=== PATIENT | female | born 1950 | race Caucasian/White ===

== ENCOUNTER 2018-06-14 10:40 | Inpatient (IN) | payer OTHER ==
[2018-06-14] VITALS (9 sets, daily range): BP systolic 100–171; BP diastolic 54–82
[~2018-06-14] VITALS: Ht 165.1 cm; Wt 143.8 kg
[~2018-06-14 10:40] MED LIST: ASCO500T2 PO; ASPI-630 PO; ATOR40TA59 PO; CALC-98 PO; CARV25TA PO; CHOL500016 PO; CYAN25003 SL; DABI150C PO; Diltiazem Hcl PO; FENO54TA6 PO; FLUT16SP2 NS; FLUT1DIS3 IH; HYDR-2165 PO; IBUP-1007 PO; KETO5DRO OP; LIRA0.6P SQ; LOSA1TAB12 PO; LOSA25TA54 PO; METF10007 PO; Metoprolol Tartrate PO; OMEG1CAP2 PO; OMEP40CA2 PO; SIMV40TA PO; TRAZ300T2 PO; XOPENEX1.25 MG/3 IH
[2018-06-14] MEDS ORDERED: IV NORMAL SALINE 1000ML BAG 1,000 ML IV SCH (11:04)
[2018-06-14] MEDS ORDERED: dilTIAZem IV PUSH 25 MG/5 ML VIAL IVP ONE (11:15)
[2018-06-14] MEDS ORDERED: dilTIAZem INJ 125 MG in IV DEXTROSE 5% 100ML 100 ML IV ONE (11:15)
[2018-06-14] MEDS ORDERED: ASPIRIN CHEWABLE 81 MG TABLET. PO ONE (11:15)
[2018-06-14] MEDS ORDERED: MORPHINE SULFATE 4 MG/ML VIAL. IV ONE (11:30)
[2018-06-14] MEDS ORDERED: ONDANSETRON PF 4 MG/2 ML VIAL. IV ONE (11:30)
--- NOTE | 2018-06-14 11:33 | PHYS DOC ---
Past Medical History Past Medical History: A-Fib, Anemia, Asthma, CHF, Diabetes-Type II, Hypertension Past Surgical History: Tonsillectomy, Other Additional Past Surgical Histo: bilateral carpal tunnel Alcohol Use: None Drug Use: None Adult General Chief Complaint Chief Complaint: CHEST PAIN HPI HPI Patient is a 68-year-old female who presents with complaint of acute onset of left to midsternal chest pain that started about 9:30 PM today. Patient states that pain started at rest. She states the pain radiates into her left shoulder. She rates pain at an 8 out of 10 and also indicates that she has nausea. She denies having had any vomiting. Patient states that she also has some palpitations and feels like her heart is beating very quickly. She didn't check her blood pressure at home and found that it was quite elevated and found heart rate to be in the upper 130s. Patient does indicate that she has a cardiac history and states that she did have one prior episode of A. fib. Review of Systems Review of Systems Constitutional: Denies fever or chills [] Respiratory: Denies cough or shortness of breath [] Cardiovascular: No additional information not addressed in HPI [] GI: Denies abdominal pain. Complains of nausea without vomiting [] Integument: Denies rash or skin lesions [] Neurologic: Denies headache, focal weakness or sensory changes [] All other systems were reviewed and found to be within normal limits, except as documented in this note. Current Medications Current Medications Current Medications Medications (Trade) Dose Ordered Sig/Vic Start Time Stop Time Status Last Admin Dose Admin Aspirin (Children'S Aspirin) 324 mg 1X ONCE 06/14/18 11:15 06/14/18 11:25 DC 06/14/18 11:45 324 MG Diltiazem HCl (Cardizem Iv Push) 20 mg 1X ONCE 06/14/18 11:15 06/14/18 11:24 DC 06/14/18 12:02 20 MG Diltiazem HCl 125 mg/Dextrose 125 ml @ 10 mls/hr 1X ONCE 06/14/18 11:15 06/14/18 23:44 06/14/18 12:06 10 MLS/HR Morphine Sulfate (Morphine Sulfate) 4 mg 1X ONCE 06/14/18 11:30 06/14/18 11:33 DC Ondansetron HCl (Zofran) 4 mg 1X ONCE 06/14/18 11:30 06/14/18 11:31 DC Sodium Chloride 1,000 ml @ 1,000 mls/hr Q1H 06/14/18 11:04 06/14/18 12:03 DC 06/14/18 12:06 1,000 MLS/HR Allergies Allergies Allergies Coded Allergies Type Severity Reaction Last Updated Verified Penicillins Allergy Severe ANAPHYLAXIS 11/04/13 Yes Sulfa (Sulfonamide Antibiotics) Allergy Severe anaphylatic 11/04/13 No sulfamethoxazole Allergy Severe Anaphylaxis 11/04/13 No trimethoprim Allergy Severe Anaphylaxis 11/04/13 No cefaclor Allergy Intermediate hives 11/04/13 No celecoxib Allergy Intermediate 11/05/13 No iodine Allergy Intermediate hives 11/04/13 No levofloxacin Allergy Intermediate hives 11/04/13 No nitrofurantoin Allergy Intermediate hives 11/04/13 No tetanus immune globulin Allergy Intermediate 11/04/13 No tramadol Allergy Intermediate hives 11/04/13 No trandolapril Allergy Intermediate hives 11/04/13 No venom-honey bee Allergy Intermediate Hives 11/04/13 No verapamil Allergy Intermediate hives 11/04/13 No Physical Exam Physical Exam Constitutional: Well developed, well nourished, no acute distress, non-toxic appearance. [] HENT: Normocephalic, atraumatic, bilateral external ears normal, oropharynx moist, no oral exudates, nose normal. [] Eyes: PERRLA, EOMI, conjunctiva normal, no discharge. [] Neck: Normal range of motion, no tenderness, supple, no stridor. [] Cardiovascular: Markedly tachycardic rate with irregular rhythm[] Lungs & Thorax: Bilateral breath sounds clear to auscultation [] Abdomen: Bowel sounds normal, soft, no tenderness. [] Skin: Warm, dry, no erythema, no rash. [] Extremities: No tenderness, no cyanosis, no clubbing, ROM intact. [] Neurologic: Alert and oriented X 3, no focal deficits noted. [] Current Patient Data Vital Signs Vital Signs Date Time Temp Pulse Resp B/P (MAP) Pulse Ox O2 Delivery O2 Flow Rate FiO2 06/14/18 12:02 155 135/80 06/14/18 10:59 97.9 24 95 Nasal Cannula 3.0 97.9 Lab Values Laboratory Tests Test 06/14/18 11:13 06/14/18 11:50 White Blood Count 7.8 x10^3/uL (4.0-11.0) Red Blood Count 4.78 x10^6/uL (3.50-5.40) Hemoglobin 11.4 g/dL (12.0-15.5) L Hematocrit 36.8 % (36.0-47.0) Mean Corpuscular Volume 77 fL (79-100) L Mean Corpuscular Hemoglobin 24 pg (25-35) L Mean Corpuscular Hemoglobin Concent 31 g/dL (31-37) Red Cell Distribution Width 17.7 % (11.5-14.5) H Platelet Count 243 x10^3/uL (140-400) Neutrophils (%) (Auto) 73 % (31-73) Lymphocytes (%) (Auto) 16 % (24-48) L Monocytes (%) (Auto) 9 % (0-9) Eosinophils (%) (Auto) 1 % (0-3) Basophils (%) (Auto) 0 % (0-3) Neutrophils # (Auto) 5.7 x10^3uL (1.8-7.7) Lymphocytes # (Auto) 1.3 x10^3/uL (1.0-4.8) Monocytes # (Auto) 0.7 x10^3/uL (0.0-1.1) Eosinophils # (Auto) 0.1 x10^3/uL (0.0-0.7) Basophils # (Auto) 0.0 x10^3/uL (0.0-0.2) D-Dimer (Michelle) < 0.27 ug/mlFEU Sodium Level 152 mmol/L (136-145) H Potassium Level 4.0 mmol/L (3.5-5.1) Chloride Level 105 mmol/L (98-107) Carbon Dioxide Level 39 mmol/L (21-32) H Anion Gap 8 (6-14) Blood Urea Nitrogen 34 mg/dL (7-20) H Creatinine 1.5 mg/dL (0.6-1.0) H Estimated GFR (Cockcroft-Gault) 34.6 BUN/Creatinine Ratio 23 (6-20) H Glucose Level 277 mg/dL (70-99) H Calcium Level 9.1 mg/dL (8.5-10.1) Magnesium Level 1.4 mg/dL (1.8-2.4) L Total Bilirubin 0.4 mg/dL (0.2-1.0) Aspartate Amino Transferase (AST) 19 U/L (15-37) Alanine Aminotransferase (ALT) 25 U/L (14-59) Alkaline Phosphatase 36 U/L (46-116) L Troponin I Quantitative 0.032 ng/mL (0.000-0.055) JN-Mtb-X-Type Natriuretic Peptide 905 pg/mL (0-124) H Total Protein 6.3 g/dL (6.4-8.2) L Albumin 3.5 g/dL (3.4-5.0) Albumin/Globulin Ratio 1.3 (1.0-1.7) Lipase 135 U/L (73-393) Thyroid Stimulating Hormone (TSH) 0.749 uIU/mL (0.358-3.74) Laboratory Tests 06/14/18 11:13 Laboratory Tests 06/14/18 11:50 EKG EKG [] Interpretation Time: EKG demonstrates atrial fibrillation with rapid ventricular response and rate of 160 Radiology/Procedures Radiology/Procedures [] Impressions: PROCEDURE: PORTABLE CHEST 1V EXAM: CHEST 1 VIEW History: Chest pain COMPARISON: 05/09/2018 TECHNIQUE: Single portable radiograph of the chest FINDINGS: The cardiac silhouette is unremarkable. Mild bibasilar lung airspace opacities likely atelectasis or infiltrates. IMPRESSION: Mild bibasilar lung airspace opacities likely atelectasis or infiltrates. Follow-up to resolution Electronically signed by: Daniel Watson MD (06/14/2018 11:40 AM) [facility] Course & Med Decision Making Course & Med Decision Making Pertinent Labs and Imaging studies reviewed. (See chart for details) [] Dragon Disclaimer Dragon Disclaimer This electronic medical record was generated, in whole or in part, using a voice recognition dictation system. Departure Departure Impression: Primary Impression: Atrial fibrillation with RVR Additional Impression: Chest pain Disposition: 09 ADMITTED INPATIENT Admitting Physician: Malu Escobedo Condition: IMPROVED Referrals: MICAH HERNANDEZ MD (PCP) Problem Qualifiers Additional Impression: Chest pain Chest pain type: unspecified Qualified Codes: R07.9 - Chest pain, unspecified STANLEY CARLOS Jr. DO Jun 14, 2018 11:32
[2018-06-14 11:40] LABS: BASO % 0 % (0-3); EOS # 0.1 x10^3/uL (0.0-0.7); EOS % 1 % (0-3); HEMATOCRIT 36.8 % (36.0-47.0); HEMOGLOBIN 11.4 g/dL (12.0-15.5); LYMPH # 1.3 x10^3/uL (1.0-4.8); LYMPH % 16 % (24-48); MEAN CORPUSCULAR HEMOGLOBIN 24 pg (25-35); MEAN CORPUSCULAR HGB CONC 31 g/dL (31-37); MEAN CORPUSCULAR VOLUME 77 fL (79-100); MONO # 0.7 x10^3/uL (0.0-1.1); MONO % 9 % (0-9); NEUT # 5.7 x10^3uL (1.8-7.7); NEUT % 73 % (31-73); PLATELET COUNT 243 x10^3/uL (140-400); RED BLOOD COUNT 4.78 x10^6/uL (3.50-5.40); RED CELL DISTRIBUTION WIDTH 17.7 % (11.5-14.5); WHITE BLOOD COUNT 7.8 x10^3/uL (4.0-11.0)
--- NOTE | 2018-06-14 11:43 | RAD ---
EXAM: CHEST 1 VIEW History: Chest pain COMPARISON: 05/09/2018 TECHNIQUE: Single portable radiograph of the chest FINDINGS: The cardiac silhouette is unremarkable. Mild bibasilar lung airspace opacities likely atelectasis or infiltrates. IMPRESSION: Mild bibasilar lung airspace opacities likely atelectasis or infiltrates. Follow-up to resolution Electronically signed by: Daniel Watson MD (06/14/2018 11:40 AM) [place] [id number]
[2018-06-14 12:29] LABS: CALCIUM 9.1 mg/dL (8.5-10.1); CREATININE 1.5 mg/dL (0.6-1.0); GFR 34.6
[2018-06-14 12:33] LABS: ALBUMIN 3.5 g/dL (3.4-5.0); ALBUMIN/GLOBULIN RATIO 1.3 (1.0-1.7); MAGNESIUM 1.4 mg/dL (1.8-2.4); TOTAL BILIRUBIN 0.4 mg/dL (0.2-1.0); TOTAL PROTEIN 6.3 g/dL (6.4-8.2)
[2018-06-14] MEDS ORDERED: MORPHINE SULFATE 4 MG/ML VIAL. IV PRN (13:45)
[2018-06-14] MEDS ORDERED: ONDANSETRON PF 4 MG/2 ML VIAL. IV PRN (13:45)
[2018-06-14] MEDS ORDERED: METF10007 PO (16:33)
[2018-06-14] MEDS ORDERED: POTA10TA6 PO (16:33)
[2018-06-14] MEDS ORDERED: FERR325T14 PO (16:33)
[2018-06-14] MEDS ORDERED: FLUT1DIS3 IH (16:33)
[2018-06-14] MEDS ORDERED: FLUT9.9S NS (16:33)
[2018-06-14] MEDS ORDERED: LOSA-73 PO (16:33)
[2018-06-14] MEDS ORDERED: CHOL500016 PO (16:33)
[2018-06-14] MEDS ORDERED: XOPENEX0.63 MG/3 NEB (16:33)
[2018-06-14] MEDS ORDERED: HYDR-2761 PO (16:33)
[2018-06-14] MEDS ORDERED: DABI150C PO (16:33)
[2018-06-14] MEDS ORDERED: DESO60CR2 TP (16:33)
[2018-06-14] MEDS ORDERED: ASCO500C9 PO (16:33)
[2018-06-14] MEDS ORDERED: KETO5DRO EACHEYE (16:33)
[2018-06-14] MEDS ORDERED: CALC-98 PO (16:33)
[2018-06-14] MEDS ORDERED: FLUO15CR TP (16:33)
[2018-06-14] MEDS ORDERED: DILT180C64 PO (16:33)
[2018-06-14] MEDS ORDERED: METO25TA4 PO (16:33)
[2018-06-14] MEDS ORDERED: ASPI-630 PO (16:33)
[2018-06-14] MEDS ORDERED: TRIA80OI TP (16:33)
[2018-06-14] MEDS ORDERED: TRAZ300T2 PO (16:33)
[2018-06-14] MEDS ORDERED: LIPITOR80 MG PO (16:33)
[2018-06-14] MEDS ORDERED: CYAN10005 PO (16:33)
[2018-06-14] MEDS ORDERED: IBUP-1007 PO (16:33)
[2018-06-14] MEDS ORDERED: FENO145T30 PO (16:33)
[2018-06-14] MEDS ORDERED: FURO-69 PO (16:33)
[2018-06-14] MEDS ORDERED: OMEP20TA63 PO (16:33)
[2018-06-14] MEDS ORDERED: PRED20TA PO (16:35)
[2018-06-14] MEDS ORDERED: CEPH-264 PO (16:35)
[2018-06-14] MEDS ORDERED: C.DIFF MED SCREEN BY RX. MC ONE (17:00)
[2018-06-14] MEDS ORDERED: MAGNESIUM SULFATE 2GM 50 ML IV ONE (17:00)
--- NOTE | 2018-06-14 17:22 | PDOC1 ---
History and Physical Date of Admission Date of Admission DATE: 06/14/18 TIME: 17:18 Source Source: Chart review, Patient History of Present Illness History of Present Illness Ms. Tolbert, is a 68-year-old female admit from ER, acute chest pain started suddenly this AM pain left sided to mid sternal, was seveer in the ER, seems a little improved now. . Patient states that pain started at rest. She states the pain radiates into her left shoulder was rated as 8/10 in the ER prior echo 3 weeks ago, Dr. Murphy, prior cath, Past Medical History Cardiovascular: AFIB, HTN, Hyperlipidemia Pulmonary: Asthma, COPD CENTRAL NERVOUS SYSTEM: Carpal Tunnel Syndrome GI: GERD, Other Heme/Onc: No pertinent hx Hepatobiliary: No pertinent hx Psych: No pertinent hx Musculoskeletal: low back pain Rheumatologic: No pertinent hx Infectious disease: No pertinent hx Renal/: No pertinent hx Endocrine: Diabetes, Other Past Surgical History Past Surgical History: Tonsillectomy, Other Family History Family History: Cancer, Diabetes, Hypertension, Stroke Social History Smoke: No ALCOHOL: none Drugs: None Current Problem List Problem List Problems Medical Problems: (1) Atrial fibrillation with RVR Status: Acute (2) Chest pain Status: Acute Current Medications Current Medications Current Medications Diltiazem HCl (Cardizem Iv Push) 20 mg 1X ONCE IVP Last administered on at 12:02; Start 06/14/18 at 11:15; Stop 06/14/18 at 11:24; Status DC Aspirin (Children'S Aspirin) 324 mg 1X ONCE PO Last administered on 06/14/18at 11:45; Start 06/14/18 at 11:15; Stop 06/14/18 at 11:25; Status DC Diltiazem HCl 125 mg/Dextrose 125 ml @ 10 mls/hr 1X ONCE IV Last administered on 06/14/18at 12:06; Start 06/14/18 at 11:15; Stop 06/14/18 at 23:44 Sodium Chloride 1,000 ml @ 1,000 mls/hr Q1H IV Last administered on 06/14/18at 12:06; Start 06/14/18 at 11:04; Stop 06/14/18 at 12:03; Status DC Morphine Sulfate (Morphine Sulfate) 4 mg 1X ONCE IV ; Start 06/14/18 at 11:30; Stop 06/14/18 at 11:33; Status DC Ondansetron HCl (Zofran) 4 mg 1X ONCE IV ; Start 06/14/18 at 11:30; Stop at 11:31; Status DC Ondansetron HCl (Zofran) 4 mg PRN Q8HRS PRN IV NAUSEA/VOMITING; Start 06/14/18 at 13:45; Stop 06/15/18 at 13:44 Morphine Sulfate (Morphine Sulfate) 4 mg PRN Q2HR PRN IV PAIN; Start 06/14/18 at 13:45; Stop 06/15/18 at 13:44 Magnesium Sulfate 50 ml @ 25 mls/hr 1X ONCE IV ; Start 06/14/18 at 17:00; Stop 06/14/18 at 18:59 Pharmacy Consult (C.diff Med Screen By Rx) 1 each 1X ONCE [facility] ; Start 06/14/18 at 17:00; Stop 06/14/18 at 17:01; Status UNV Active Scripts Active Reported Keflex (Cephalexin) 500 Mg Capsule 1 Cap PO TID 3 Days Prednisone 20 Mg Tablet 1 Tab PO DAILY Triamcinolone Acetonide 80 Gm Oint...g. 1 Lupe TP PRN BID PRN Xopenex (Levalbuterol Hcl) 0.63 Mg/3 Ml Vial.neb 1 Vial NEB PRN DAILY PRN Hydrocodone-Apap 5-325 (Hydrocodone Bit/Acetaminophen) 1 Tab Tablet 1 Tab PO PRN BID PRN Fluocinonide 15 Gm Cream..g. 1 Lupe TP PRN DAILY PRN Desowen (Desonide) 60 Gm Cream..g. 1 Lupe TP PRN DAILY PRN Acular (Ketorolac Tromethamine) 5 Ml Drops 1 Drop EACHEYE DAILY Prilosec Otc (Omeprazole Magnesium) 20 Mg Tablet.dr 2 Tab PO DAILY Lipitor (Atorvastatin Calcium) 80 Mg Tablet 1 Tab PO DAILY Flonase Allergy Relief (Fluticasone Propionate) 9.9 Ml [place].susp 2 Sprays NS PRN DAILY PRN Trazodone Hcl 300 Mg Tablet 1 Tab PO QHS Vitamin B-12 (Cyanocobalamin (Vitamin B-12)) 1,000 Mcg Tablet 2.5 Tab PO DAILY Vitamin D3 (Cholecalciferol (Vitamin D3)) 5,000 Unit Tablet 1 Tab PO DAILY Vitamin C (Ascorbic Acid) 500 Mg Capsule 500 Mg PO DAILY05 Ferrous Sulfate 325 Mg Tablet 1 Tab PO DAILY Calcium + Vitamin D Tablet (Calcium Carbonate/Vitamin D3) 1 Each Tablet 1 Each PO DAILY Aspirin 81 Mg Tab.chew 1 Tab PO DAILY Pradaxa (Dabigatran Etexilate Mesylate) 150 Mg Capsule 1 Cap PO BID Metformin Hcl 1,000 Mg Tablet 1,000 Mg PO BIDWMEALS Metoprolol Tartrate 25 Mg Tablet 1 Tab PO BID Fenofibrate (Fenofibrate Nanocrystallized) 145 Mg Tablet 1 Tab PO DAILY Ibuprofen 600 Mg Tablet 1,800 Mg PO DAILY PRN Klor-Con 10 (Potassium Chloride) 10 Meq Tablet.er 10 Meq PO DAILY Lasix (Furosemide) 20 Mg Tablet 1 Tab PO DAILY Losartan Potassium 50 Mg Tablet 25 Mg PO DAILY Cartia Xt (Diltiazem Hcl) 180 Mg Cap.er.24h 360 Mg PO DAILY Advair 250-50 Diskus (Fluticasone/Salmeterol) 1 Each Disk.w.dev 1 Puff IH DAILY Allergies Allergies: Coded Allergies: Penicillins (Verified Allergy, Severe, ANAPHYLAXIS, 11/04/13) Sulfa (Sulfonamide Antibiotics) (Unverified Allergy, Severe, anaphylatic, 11/04/13) sulfamethoxazole (Unverified Allergy, Severe, Anaphylaxis, 11/04/13) trimethoprim (Unverified Allergy, Severe, Anaphylaxis, 11/04/13) cefaclor (Unverified Allergy, Intermediate, hives, 11/04/13) celecoxib (Unverified Allergy, Intermediate, 11/05/13) iodine (Unverified Allergy, Intermediate, hives, 11/04/13) levofloxacin (Unverified Allergy, Intermediate, hives, 11/04/13) nitrofurantoin (Unverified Allergy, Intermediate, hives, 11/04/13) tetanus immune globulin (Unverified Allergy, Intermediate, 11/04/13) tramadol (Unverified Allergy, Intermediate, hives, 11/04/13) trandolapril (Unverified Allergy, Intermediate, hives, 11/04/13) venom-honey bee (Unverified Allergy, Intermediate, Hives, 11/04/13) verapamil (Unverified Allergy, Intermediate, hives, 11/04/13) ROS General: YES: Fatigue; No: Night Sweats, Malaise, Appetite, Other PSYCHOLOGICAL ROS: No: Anxiety, Behavioral Disorder, Concentration difficultie , Decreased libido, Depression, Disorientation, Hallucinations, Hostility, Irritablity, Memory difficulties, Mood Swings, Obsessive thoughts, Physical abuse, Sexual abuse, Sleep disturbances, Suicidal ideation, Other Eyes: No Blurry vision, No Decreased vision, No Double vision, No Dry eyes, No Excessive tearing, No Eye Pain, No Itchy Eyes, No Loss of vision, No Photophobia , No Scotomata, No Uses contacts, No Uses glasses, No Other HEENT: No: Heacaches, Visual Changes, Hearing change, Nasal congestion, Nasal discharge, Oral lesions, Sinus pain, Sore Throat, Epistaxis, Sneezing, Snoring, Tinnitus, Vertigo, Vocal changes, Other Respiratory: No: Cough, Hemoptysis, Orthopnea, Pleuritic Pain, Shortness of breath, SOB with excertion, Sputum Changes, Stridor, Tachypnea, Wheezing, Other Cardiovascular: yes Chest Pain, yes Palpitations Gastrointestinal: Yes Nausea Genitourinary: No Dysuria, No Frequency, No Incontinence, No Hematuria, No Retention, No Discharge, No Urgency, No Pain, No Flank Pain, No Other, No , No , No , No , No , No , No Musculoskeletal: No Gait Disturbance, No Joint Pain, No Joint Stiffness, No Joint Swelling, No Muscle Pain, No Muscular Weakness, No Pain In:, No Swelling In:, No Other Neurological: No Behavorial Changes, No Bowel/Bladder ControlChng, No Confusion , No Dizziness, No Headaches, No Impaired Coord/balance, No Memory Loss, No Numbness/Tingling, No Seizures, No Speech Problems, No Tremors, No Visual Changes, No Weakness, No Other Skin: Yes Dry Skin; No Eczema, No Hair Changes, No Lumps, No Mole Changes, No Mottling, No Nail Changes, No Pruritus, No Rash, No Skin Lesion Changes, No Other, No Acne Physical Exam General: Alert, Oriented X3, Cooperative, mild distress HEENT: EOMI, Mucous membr. moist/pink Lungs: Normal air movement Heart: no gallops, no murmurs, irregularly irregular (tachy) Abdomen: Normal bowel sounds, Soft (very obese) Extremities: No clubbing, Normal pulses (no deficit), Other (tr edema, ) Skin: No breakdown, No significant lesion Neuro: Normal speech, Normal tone Psych/Mental Status: Mental status NL, Mood NL Vitals Vitals Vital Signs Date Time Temp Pulse Resp B/P (MAP) Pulse Ox O2 Delivery O2 Flow Rate FiO2 06/14/18 15:30 Nasal Cannula 3.0 06/14/18 15:20 98.9 125 20 103/64 (77) 95 98.9 Labs Labs Laboratory Tests Test 06/14/18 11:13 06/14/18 11:50 White Blood Count 7.8 x10^3/uL (4.0-11.0) Red Blood Count 4.78 x10^6/uL (3.50-5.40) Hemoglobin 11.4 g/dL (12.0-15.5) Hematocrit 36.8 % (36.0-47.0) Mean Corpuscular Volume 77 fL (79-100) Mean Corpuscular Hemoglobin 24 pg (25-35) Mean Corpuscular Hemoglobin Concent 31 g/dL (31-37) Red Cell Distribution Width 17.7 % (11.5-14.5) Platelet Count 243 x10^3/uL (140-400) Neutrophils (%) (Auto) 73 % (31-73) Lymphocytes (%) (Auto) 16 % (24-48) Monocytes (%) (Auto) 9 % (0-9) Eosinophils (%) (Auto) 1 % (0-3) Basophils (%) (Auto) 0 % (0-3) Neutrophils # (Auto) 5.7 x10^3uL (1.8-7.7) Lymphocytes # (Auto) 1.3 x10^3/uL (1.0-4.8) Monocytes # (Auto) 0.7 x10^3/uL (0.0-1.1) Eosinophils # (Auto) 0.1 x10^3/uL (0.0-0.7) Basophils # (Auto) 0.0 x10^3/uL (0.0-0.2) D-Dimer (Michelle) < 0.27 ug/mlFEU Sodium Level 152 mmol/L (136-145) Potassium Level 4.0 mmol/L (3.5-5.1) Chloride Level 105 mmol/L (98-107) Carbon Dioxide Level 39 mmol/L (21-32) Anion Gap 8 (6-14) Blood Urea Nitrogen 34 mg/dL (7-20) Creatinine 1.5 mg/dL (0.6-1.0) Estimated GFR (Cockcroft-Gault) 34.6 BUN/Creatinine Ratio 23 (6-20) Glucose Level 277 mg/dL (70-99) Calcium Level 9.1 mg/dL (8.5-10.1) Magnesium Level 1.4 mg/dL (1.8-2.4) Total Bilirubin 0.4 mg/dL (0.2-1.0) Aspartate Amino Transf (AST/SGOT) 19 U/L (15-37) Alanine Aminotransferase (ALT/SGPT) 25 U/L (14-59) Alkaline Phosphatase 36 U/L (46-116) Troponin I Quantitative 0.032 ng/mL (0.000-0.055) XX-Ecd-W-Type Natriuretic Peptide 905 pg/mL (0-124) Total Protein 6.3 g/dL (6.4-8.2) Albumin 3.5 g/dL (3.4-5.0) Albumin/Globulin Ratio 1.3 (1.0-1.7) Lipase 135 U/L (73-393) Thyroid Stimulating Hormone (TSH) 0.749 uIU/mL (0.358-3.74) Laboratory Tests Test 06/14/18 11:13 06/14/18 11:50 White Blood Count 7.8 x10^3/uL (4.0-11.0) Red Blood Count 4.78 x10^6/uL (3.50-5.40) Hemoglobin 11.4 g/dL (12.0-15.5) Hematocrit 36.8 % (36.0-47.0) Mean Corpuscular Volume 77 fL (79-100) Mean Corpuscular Hemoglobin 24 pg (25-35) Mean Corpuscular Hemoglobin Concent 31 g/dL (31-37) Red Cell Distribution Width 17.7 % (11.5-14.5) Platelet Count 243 x10^3/uL (140-400) Neutrophils (%) (Auto) 73 % (31-73) Lymphocytes (%) (Auto) 16 % (24-48) Monocytes (%) (Auto) 9 % (0-9) Eosinophils (%) (Auto) 1 % (0-3) Basophils (%) (Auto) 0 % (0-3) Neutrophils # (Auto) 5.7 x10^3uL (1.8-7.7) Lymphocytes # (Auto) 1.3 x10^3/uL (1.0-4.8) Monocytes # (Auto) 0.7 x10^3/uL (0.0-1.1) Eosinophils # (Auto) 0.1 x10^3/uL (0.0-0.7) Basophils # (Auto) 0.0 x10^3/uL (0.0-0.2) D-Dimer (Michelle) < 0.27 ug/mlFEU Sodium Level 152 mmol/L (136-145) Potassium Level 4.0 mmol/L (3.5-5.1) Chloride Level 105 mmol/L (98-107) Carbon Dioxide Level 39 mmol/L (21-32) Anion Gap 8 (6-14) Blood Urea Nitrogen 34 mg/dL (7-20) Creatinine 1.5 mg/dL (0.6-1.0) Estimated GFR (Cockcroft-Gault) 34.6 BUN/Creatinine Ratio 23 (6-20) Glucose Level 277 mg/dL (70-99) Calcium Level 9.1 mg/dL (8.5-10.1) Magnesium Level 1.4 mg/dL (1.8-2.4) Total Bilirubin 0.4 mg/dL (0.2-1.0) Aspartate Amino Transf (AST/SGOT) 19 U/L (15-37) Alanine Aminotransferase (ALT/SGPT) 25 U/L (14-59) Alkaline Phosphatase 36 U/L (46-116) Troponin I Quantitative 0.032 ng/mL (0.000-0.055) AS-Hnk-F-Type Natriuretic Peptide 905 pg/mL (0-124) Total Protein 6.3 g/dL (6.4-8.2) Albumin 3.5 g/dL (3.4-5.0) Albumin/Globulin Ratio 1.3 (1.0-1.7) Lipase 135 U/L (73-393) Thyroid Stimulating Hormone (TSH) 0.749 uIU/mL (0.358-3.74) VTE Prophylaxis Ordered VTE Prophylaxis Devices: Yes VTE Pharmacological Prophylaxi: No Assessment/Plan Assessment/Plan chest pain, angina, r.o ACS afib with RVR, acute diastolic CHF recent cellulitis, abd, better on keflex, cont morbid obesity, BMI 52 OLIVA JIMENEZ MD Jun 14, 2018 17:22
[2018-06-14] MEDS ORDERED: DIGOXIN IV 500 MCG/2 ML AMPUL. IV ONE ×2 (17:45→18:15)
[2018-06-14] MEDS ORDERED: ALBUTEROL SULFATE 2.5 MG/3 ML NEBU. NEB PRN (17:45)
[2018-06-14] MEDS ORDERED: ANTI-COAG MONITOR BY PHARMACY. MC PRN ×2 (19:45→20:00)
[2018-06-14] MEDS ORDERED: IPRATRPIUM/ALBUTEROL 0.5/2.5MG 3 ML NEBU. NEB SCH (19:45)
[2018-06-14] MEDS ORDERED: HYDROcodone/APAP 5/325MG 1 TAB TABLET PO PRN (19:45)
[2018-06-14] MEDS ORDERED: IBUPROFEN 400 MG TABLET. PO PRN (20:00)
[2018-06-14] MEDS: IPRATRPIUM/ALBUTEROL 0.5/2.5MG 3 ML NEBU. NEB SCH (20:00)
[2018-06-14] MEDS ORDERED: traZODone 100 MG TABLET. PO SCH (21:00)
[2018-06-14] MEDS ORDERED: ATORVASTATIN CALCIUM 40 MG TABLET. PO SCH (21:00)
[2018-06-14 21:29] LABS: BILIRUBIN,URINE NEGATIVE (NEG); CLARITY,URINE CLEAR; COLOR,URINE YELLOW; NITRITE,URINE NEGATIVE (NEG); PH,URINE 5.5; PROTEIN,URINE 30 mg/dL (NEG-TRACE); UROBILINOGEN,URINE 0.2 mg/dL (0.2 mg/dL)
[2018-06-14 21:36] LABS: HYALINE CASTS, URINE FEW /HPF
[2018-06-14 21:37] LABS: BACTERIA,URINE FEW /HPF (0-FEW); RBC,URINE 0 /HPF (0-2)
[2018-06-14] MEDS: CEPHALEXIN 250 MG CAPSULE. PO SCH (21:41)
[2018-06-14] MEDS: METOPROLOL TART IMMED RELEASE 25 MG TABLET. PO SCH (21:42)
[2018-06-14] MEDS: DABIGATRAN ETEXILATE 150 MG CAPSULE. PO SCH (21:43)
[2018-06-14] MEDS ORDERED: LACT1CAP29 PO (21:54)
[2018-06-14] MEDS ORDERED: dilTIAZem INJ 125 MG in IV DEXTROSE 5% 100ML 100 ML IV PRN ×2 (22:30→22:45)
[2018-06-15] VITALS (20 sets, daily range): BP systolic 142–192; BP diastolic 62–97
[2018-06-15] MEDS: IPRATRPIUM/ALBUTEROL 0.5/2.5MG 3 ML NEBU. NEB SCH ×3 (07:11→15:11)
[2018-06-15] MEDS ORDERED: PANTOPRAZOLE 40 MG TABLET.DR. PO SCH (07:30)
[2018-06-15] MEDS ORDERED: metFORMIN 500 MG TABLET PO SCH (08:00)
[2018-06-15] MEDS ORDERED: POTASSIUM CHLORIDE 10 MEQ TABLET.ER. PO SCH (08:00)
[2018-06-15] MEDS: CEPHALEXIN 250 MG CAPSULE. PO SCH ×2 (08:42→14:12)
[2018-06-15] MEDS: DABIGATRAN ETEXILATE 150 MG CAPSULE. PO SCH (08:42)
[2018-06-15] MEDS: METOPROLOL TART IMMED RELEASE 25 MG TABLET. PO SCH (08:48)
[2018-06-15] MEDS ORDERED: ASPIRIN CHEWABLE 81 MG TABLET. PO SCH (09:00)
[2018-06-15] MEDS ORDERED: FENOFIBRATE,MICRONIZED 134 MG CAPSULE PO SCH (09:00)
[2018-06-15] MEDS ORDERED: predniSONE 20 MG TABLET PO SCH (09:00)
[2018-06-15] MEDS ORDERED: CYANOCOBALAMIN (VITAMIN B-12) 1,000 MCG TABLET. PO SCH (09:00)
[2018-06-15] MEDS ORDERED: FUROSEMIDE 20 MG TABLET PO SCH (09:00)
[2018-06-15] MEDS ORDERED: CALCIUM CARB/VIT D3 500/200 TABLET. PO SCH (09:00)
[2018-06-15] MEDS ORDERED: FERROUS SULFATE 325 MG TABLET. PO SCH (09:00)
[2018-06-15] MEDS ORDERED: ASCORBIC ACID 500 MG TABLET PO SCH (09:00)
[2018-06-15] MEDS ORDERED: LOSARTAN POTASSIUM 25 MG TABLET. PO SCH (09:00)
[2018-06-15] MEDS ORDERED: CHOLECALCIFEROL (VITAMIN D3) 5,000 UNIT CAPSULE PO SCH (09:00)
--- NOTE | 2018-06-15 10:10 | EKG ---
[facility] [address] [place] [address] Test Date: 2018-06-15 Test Time: 08:06:53 Pat Name: DIMITRI STONER Department: Room: 209 1 Gender: Manager Content: : 1950 Requested By: STANLEY CARLOS Order Number: [id number] Reading MD: Juan Tristan Measurements Intervals [place] Rate: P: NE: QRS: QRSD: T: QT: QTc: Interpretive Statements ATRIAL FIBRILLATION WITH RVR Electronically Signed On 06-26-2018 10:22:17 ORGANIC SEARCH LEAD by Juan Tristan
--- NOTE | 2018-06-15 11:20 | PDOC2 ---
DANN BURGOS TASTE TESTER 06/15/18 1120: CARDIAC CONSULT DATE OF CONSULT Date of Consult DATE: 06/15/18 TIME: 11:04 REASON FOR CONSULT Reason for Consult: AFIB RVR, cp REFERRING PHYSICIAN Referring Physician: Lanette SOURCE Source: Chart review, Patient HISTORY OF PRESENT ILLNESS HISTORY OF PRESENT ILLNESS This is a pleasant 68 yo female admitted for complains of chest pain. Reports that she has been doing well with no CP or SOA. She is about to get done with her prednisone and tapering does given due to bronchitis. Also on last few dose of keflex due to panniculitis. Reports no fever or chills. she was noted with COPD not to long ago and uses O2 3LPM continuously. Yesterday morning she started having sharp midchest pain nonradiating and checked her BP and it was 267/150. She typically has SOA with AFIB RVR but she did not feel any palpitations and finally was noted with AFIB RVR in ED. she was then placed on cardizem drip and presently back on SR. Reports that she has been complaint with her medications including her cardizem and pradaxa. She has been taking cough syrup with codeine but unclear if this has decongestants. She went to her PCP 2 weeks ago and she was told of her BP being normal. No nausea, vomiting and no SOA. PAST MEDICAL HISTORY Past Medical History Cardiovascular: AFIB (paroxysmal ), HTN, Hyperlipidemia Pulmonary: Asthma, COPD, pneumonia GI: GERD, Other (esophagitis, Murcia's Esophagus ) Heme/Onc: No pertinent hx Hepatobiliary: No pertinent hx Psych: No pertinent hx Musculoskeletal: low back pain Rheumatologic: No pertinent hx Infectious disease: No pertinent hx ENT: No pertinent hx Renal/: No pertinent hx Endocrine: Diabetes, Other (obesity ) Dermatology: No pertinent hx PAST SURGICAL HISTORY Past Surgical History Tonsillectomy, Other (carpal tunnel release) FAMILY HISTORY Family History Cancer (breast), Diabetes, Hypertension, Stroke SOCIAL HISTORY Social History Smoke: Quit (1991) ALCOHOL: none Drugs: None Lives: with Family CURRENT MEDICATIONS CURRENT MEDICATIONS Current Medications Medications (Trade) Dose Ordered Sig/Vic Route PRN Reason Start Time Stop Time Status Last Admin Dose Admin Diltiazem HCl (Cardizem Iv Push) 20 mg 1X ONCE IVP 06/14/18 11:15 06/14/18 11:24 DC 06/14/18 12:02 Aspirin (Children'S Aspirin) 324 mg 1X ONCE PO 06/14/18 11:15 06/14/18 11:25 DC 06/14/18 11:45 Diltiazem HCl 125 mg/Dextrose 125 ml @ 10 mls/hr 1X ONCE IV 06/14/18 11:15 06/14/18 23:44 DC 06/14/18 12:06 Magnesium Sulfate 50 ml @ 25 mls/hr 1X ONCE IV 06/14/18 17:00 06/14/18 18:59 DC 06/14/18 17:40 Digoxin (Lanoxin) 500 mcg 1X ONCE IV 06/14/18 18:15 06/14/18 18:18 DC 06/14/18 18:22 Aspirin (Children'S Aspirin) 81 mg DAILY PO 06/15/18 09:00 06/15/18 08:43 Cyanocobalamin (Vitamin B-12) 2,500 mcg DAILY PO 06/15/18 09:00 06/15/18 08:43 Dabigatran (Pradaxa) 150 mg BID PO 06/14/18 21:00 06/15/18 08:42 Ferrous Sulfate (Feosol) 325 mg DAILY PO 06/15/18 09:00 06/15/18 08:42 Furosemide (Lasix) 20 mg DAILY PO 06/15/18 09:00 06/15/18 08:44 Losartan Potassium (Cozaar) 25 mg DAILY PO 06/15/18 09:00 06/15/18 08:55 Metoprolol Tartrate (Lopressor) 25 mg BID PO 06/14/18 21:00 06/15/18 08:48 Prednisone (Prednisone) 20 mg DAILY PO 06/15/18 09:00 06/15/18 08:43 Ascorbic Acid (Vitamin C) 500 mg DAILY PO 06/15/18 09:00 06/15/18 08:43 Atorvastatin Calcium (Lipitor) 80 mg QHS PO 06/14/18 21:00 06/14/18 21:41 Calcium/Vitamin D (Oscal D 500mg/ 200uts) 1 tab DAILY PO 06/15/18 09:00 06/15/18 08:43 Cephalexin HCl (Keflex) 500 mg TID PO 06/14/18 21:00 06/15/18 08:42 Vitamin D (Vitamin D3) 5,000 unit DAILY PO 06/15/18 09:00 06/15/18 08:42 Fenofibrate (Lofibra) 134 mg DAILY PO 06/15/18 09:00 06/15/18 08:42 Ibuprofen (Motrin) 800 mg PRN Q6HRS PRN PO INFLAMMATION 06/14/18 20:00 06/15/18 08:55 Metformin HCl (Glucophage) 1,000 mg BIDWMEALS PO 06/15/18 08:00 06/15/18 08:43 Pantoprazole Sodium (Protonix) 40 mg DAILYAC PO 06/15/18 07:30 06/15/18 08:42 Potassium Chloride (Klor-Con) 10 meq DAILYWBKFT PO 06/15/18 08:00 06/15/18 08:43 Trazodone HCl (Desyrel) 300 mg QHS PO 06/14/18 21:00 06/14/18 21:43 Albuterol/ Ipratropium (Duoneb) 3 ml RTQID NEB 06/14/18 20:00 06/15/18 10:49 Diltiazem HCl 125 mg/Dextrose 125 ml @ 5 mls/hr CONT PRN IV CARDIAC 06/14/18 22:30 06/14/18 22:00 ALLERGIES ALLERGIES: Coded Allergies: Penicillins (Verified Allergy, Severe, ANAPHYLAXIS, 11/04/13) Sulfa (Sulfonamide Antibiotics) (Verified Allergy, Severe, anaphylatic, ) sulfamethoxazole (Verified Allergy, Severe, Anaphylaxis, 06/15/18) trimethoprim (Verified Allergy, Severe, Anaphylaxis, 06/15/18) cefaclor (Verified Allergy, Intermediate, hives, 06/15/18) celecoxib (Verified Allergy, Intermediate, 06/15/18) iodine (Verified Allergy, Intermediate, hives, 06/15/18) levofloxacin (Verified Allergy, Intermediate, hives, 06/15/18) nitrofurantoin (Verified Allergy, Intermediate, hives, 06/15/18) tetanus immune globulin (Verified Allergy, Intermediate, 06/15/18) tramadol (Verified Allergy, Intermediate, hives, 06/15/18) trandolapril (Verified Allergy, Intermediate, hives, 06/15/18) venom-honey bee (Verified Allergy, Intermediate, Hives, 06/15/18) verapamil (Verified Allergy, Intermediate, hives, 06/15/18) ROS Review of System 14 point ROS evaluated with pertinent positives noted per HPI PHYSICAL EXAM General: Alert, Oriented X3, Cooperative, No acute distress HEENT: Atraumatic, Mucous membr. moist/pink Lungs: Other (faint basilar crackles) Heart: Regular rate (SR), Normal S1, Normal S2, No murmurs Extremities: No cyanosis, Other (trace to 1+ bilateral LE pitting edema) Skin: No breakdown, No significant lesion Neuro: Normal speech, Sensation intact Psych/Mental Status: Mental status NL, Mood NL MUSCULOSKELETAL: Osteoarthritic changes both hands VITALS VITALS Vital Signs Date Time Temp Pulse Resp B/P (MAP) Pulse Ox O2 Delivery O2 Flow Rate FiO2 06/15/18 10:49 92 Nasal Cannula 3.0 06/15/18 08:55 81 176/83 06/15/18 07:15 97.7 18 97.7 LABS Lab: Laboratory Tests Test 06/14/18 11:13 06/14/18 11:50 06/14/18 16:45 06/14/18 20:00 White Blood Count 7.8 x10^3/uL (4.0-11.0) Red Blood Count 4.78 x10^6/uL (3.50-5.40) Hemoglobin 11.4 g/dL (12.0-15.5) Hematocrit 36.8 % (36.0-47.0) Mean Corpuscular Volume 77 fL (79-100) Mean Corpuscular Hemoglobin 24 pg (25-35) Mean Corpuscular Hemoglobin Concent 31 g/dL (31-37) Red Cell Distribution Width 17.7 % (11.5-14.5) Platelet Count 243 x10^3/uL (140-400) Neutrophils (%) (Auto) 73 % (31-73) Lymphocytes (%) (Auto) 16 % (24-48) Monocytes (%) (Auto) 9 % (0-9) Eosinophils (%) (Auto) 1 % (0-3) Basophils (%) (Auto) 0 % (0-3) Neutrophils # (Auto) 5.7 x10^3uL (1.8-7.7) Lymphocytes # (Auto) 1.3 x10^3/uL (1.0-4.8) Monocytes # (Auto) 0.7 x10^3/uL (0.0-1.1) Eosinophils # (Auto) 0.1 x10^3/uL (0.0-0.7) Basophils # (Auto) 0.0 x10^3/uL (0.0-0.2) D-Dimer (Michelle) < 0.27 ug/mlFEU Sodium Level 152 mmol/L (136-145) Potassium Level 4.0 mmol/L (3.5-5.1) Chloride Level 105 mmol/L (98-107) Carbon Dioxide Level 39 mmol/L (21-32) Anion Gap 8 (6-14) Blood Urea Nitrogen 34 mg/dL (7-20) Creatinine 1.5 mg/dL (0.6-1.0) Estimated GFR (Cockcroft-Gault) 34.6 BUN/Creatinine Ratio 23 (6-20) Glucose Level 277 mg/dL (70-99) Calcium Level 9.1 mg/dL (8.5-10.1) Magnesium Level 1.4 mg/dL (1.8-2.4) Total Bilirubin 0.4 mg/dL (0.2-1.0) Aspartate Amino Transf (AST/SGOT) 19 U/L (15-37) Alanine Aminotransferase (ALT/SGPT) 25 U/L (14-59) Alkaline Phosphatase 36 U/L (46-116) Troponin I Quantitative 0.032 ng/mL (0.000-0.055) 0.129 ng/mL (0.000-0.055) 0.127 ng/mL (0.000-0.055) YL-Dxk-B-Type Natriuretic Peptide 905 pg/mL (0-124) Total Protein 6.3 g/dL (6.4-8.2) Albumin 3.5 g/dL (3.4-5.0) Albumin/Globulin Ratio 1.3 (1.0-1.7) Lipase 135 U/L (73-393) Thyroid Stimulating Hormone (TSH) 0.749 uIU/mL (0.358-3.74) Test 06/14/18 21:10 Urine Collection Type Unknown Urine Color Yellow Urine Clarity Clear Urine pH 5.5 Urine Specific [place] 1.020 Urine Protein 30 mg/dL (NEG-TRACE) Urine Glucose (UA) Negative mg/dL (NEG) Urine Ketones (Stick) Negative mg/dL (NEG) Urine Blood Negative (NEG) Urine Nitrite Negative (NEG) Urine Bilirubin Negative (NEG) Urine Urobilinogen Dipstick 0.2 mg/dL (0.2 mg/dL) Urine Leukocyte Esterase Small (NEG) Urine RBC 0 /HPF (0-2) Urine WBC 5-10 /HPF (0-4) Urine Bacteria Few /HPF (0-FEW) Urine Hyaline Casts Few /HPF Urine Mucus Mod /LPF STRESS TEST STRESS TEST Conclusion 1. Regadenoson cardioisotope stress test did not show any evidence for ischemia or infarct 2. Normal left ventricle systolic function with ejection fraction calculated at 82% 3. Low annual risk for cardiovascular events DATE: 11/06/13 1059 ASSESSMENT/PLAN ASSESSMENT/PLAN 1. Atypical CP: likely from AFIB and high BP 2. AFIB RVR: paroxysmal by hx. Now on SR. 3. Malignant HTN: noted 257/150 at home. Improving. Uncontrolled with recent prednisone and possibility of decongestant use. 4. MANDI: Cr at 1.5. IVF given in ED 5. Elevated troponin: peaked at 0.12, suspect demand mediated, type 2 with above culprits 6. DM2/HLP 7. Valvular insufficiency: : Mod , mild MS with mod pulmonary HTN 8. Morbid obesity 9. Chronic anticoagulation: with pradaxa 10. Hypernatremia 11. Hypomagnesemia 12. COPD Recommendations 1. BMP, Mg. Obtain EKG 2. Will verify home cardiac meds and will start on flecainide for rhythm maintenance. Continue with pradaxa. 3. Outpt stress test. 4. Recommend outpt GARRICK worlup. YUDI LEYVA MD 06/15/18 8104: CARDIAC CONSULT ASSESSMENT/PLAN ASSESSMENT/PLAN Patient seen and examined. Agree with COMMERCIAL [employer]CR[employer] OFFICER's assessment and plan. Patient with atrial fibrillation with RVR presently back in sinus rhythm. Agree with starting flecainide for antiarrhythmic therapy and continuing Pradaxa for stroke prophylaxis. Chest pain most probably secondary to RVR and slight troponin elevation probably secondary to demand ischemia. Plan for outpatient ischemic evaluation with Lexiscan nuclear stress test. Thank you for your consultation. DANN BURGOS APRN Jun 15, 2018 11:20 YUDI LEYVA MD Jun 15, 2018 15:56
--- NOTE | 2018-06-15 11:46 | NUR ---
SS following for discharge planning. Pt is from home with spouse and currently requiring oxygen. No discharge needs noted at this time. SS will continue to follow for pending discharge needs.
[2018-06-15] MEDS ORDERED: FLECAINIDE ACETATE 50 MG TABLET. PO SCH (12:30)
[2018-06-15 12:47] LABS: CALCIUM 9.3 mg/dL (8.5-10.1); CREATININE 1.4 mg/dL (0.6-1.0); GFR 37.5; MAGNESIUM 1.8 mg/dL (1.8-2.4); POTASSIUM 4.7 mmol/L (3.5-5.1)
--- NOTE | 2018-06-15 13:03 | EKG ---
[facility] [address] [place] [address] Test Date: 2018-06-15 Test Time: 11:56:41 Pat Name: DIMITRI STONER Department: Room: 209 1 Gender: F Financial Aid Manager: : 1950 Requested By: DANN BURGOS Order Number: [id number] Reading MD: Juan Tristan Measurements Intervals Simpson Rate: 74 P: 31 NV: 178 QRS: 30 QRSD: 78 T: 23 QT: 352 QTc: 391 Interpretive Statements SINUS RHYTHM LOW LIMB LEAD VOLTAGE Electronically Signed On 06-26-2018 10:23:16 NET LEAD DEVELOPER by Juan Tristan
[2018-06-15 14:06] LABS: CHOLESTEROL/HDL RATIO 2.9
[2018-06-15] MEDS ORDERED: FLEC50TA PO (14:58)
--- NOTE | 2018-06-15 15:04 | PDOC3 ---
Discharge Summary Visit Information Date of Admission: Jun 14, 2018 Date of Discharge: Jun 15, 2018 Admitting Diagnosis: atrial fibrillation with rvr Final Diagnosis 1. Atypical CP: likely from AFIB and high BP 2. AFIB RVR: paroxysmal by hx. Now on SR. 3. Malignant HTN: noted 257/150 at home. Improved. Uncontrolled with recent prednisone and possibility of decongestant use. 4. MANDI: Cr at 1.5. IVF given in ED 5. Elevated troponin: peaked at 0.12, suspect demand mediated, type 2 with above culprits 6. DM2/HLP 7. Valvular insufficiency: : Mod , mild MS with mod pulmonary HTN 8. Morbid obesity with a BMI of 52 9. Chronic anticoagulation: with pradaxa 10. Hypernatremia 11. Hypomagnesemia 12. COPD Brief Hospital Course Allergies Allergies Coded Allergies Type Severity Reaction Last Updated Verified Penicillins Allergy Severe ANAPHYLAXIS 11/04/13 Yes Sulfa (Sulfonamide Antibiotics) Allergy Severe anaphylatic 06/15/18 Yes sulfamethoxazole Allergy Severe Anaphylaxis 06/15/18 Yes trimethoprim Allergy Severe Anaphylaxis 06/15/18 Yes cefaclor Allergy Intermediate hives 06/15/18 Yes celecoxib Allergy Intermediate 06/15/18 Yes iodine Allergy Intermediate hives 06/15/18 Yes levofloxacin Allergy Intermediate hives 06/15/18 Yes nitrofurantoin Allergy Intermediate hives 06/15/18 Yes tetanus immune globulin Allergy Intermediate 06/15/18 Yes tramadol Allergy Intermediate hives 06/15/18 Yes trandolapril Allergy Intermediate hives 06/15/18 Yes venom-honey bee Allergy Intermediate Hives 06/15/18 Yes verapamil Allergy Intermediate hives 06/15/18 Yes Vital Signs Vital Signs Date Time Temp Pulse Resp B/P (MAP) Pulse Ox O2 Delivery O2 Flow Rate FiO2 06/15/18 12:08 72 164/71 06/15/18 10:49 92 Nasal Cannula 3.0 06/15/18 10:22 97.7 18 97.7 Lab Results Laboratory Tests Test 06/14/18 11:13 06/14/18 11:50 06/14/18 16:45 06/14/18 20:00 White Blood Count 7.8 x10^3/uL (4.0-11.0) Red Blood Count 4.78 x10^6/uL (3.50-5.40) Hemoglobin 11.4 g/dL (12.0-15.5) Hematocrit 36.8 % (36.0-47.0) Mean Corpuscular Volume 77 fL (79-100) Mean Corpuscular Hemoglobin 24 pg (25-35) Mean Corpuscular Hemoglobin Concent 31 g/dL (31-37) Red Cell Distribution Width 17.7 % (11.5-14.5) Platelet Count 243 x10^3/uL (140-400) Neutrophils (%) (Auto) 73 % (31-73) Lymphocytes (%) (Auto) 16 % (24-48) Monocytes (%) (Auto) 9 % (0-9) Eosinophils (%) (Auto) 1 % (0-3) Basophils (%) (Auto) 0 % (0-3) Neutrophils # (Auto) 5.7 x10^3uL (1.8-7.7) Lymphocytes # (Auto) 1.3 x10^3/uL (1.0-4.8) Monocytes # (Auto) 0.7 x10^3/uL (0.0-1.1) Eosinophils # (Auto) 0.1 x10^3/uL (0.0-0.7) Basophils # (Auto) 0.0 x10^3/uL (0.0-0.2) D-Dimer (Michelle) < 0.27 ug/mlFEU Sodium Level 152 mmol/L (136-145) Potassium Level 4.0 mmol/L (3.5-5.1) Chloride Level 105 mmol/L (98-107) Carbon Dioxide Level 39 mmol/L (21-32) Anion Gap 8 (6-14) Blood Urea Nitrogen 34 mg/dL (7-20) Creatinine 1.5 mg/dL (0.6-1.0) Estimated GFR (Cockcroft-Gault) 34.6 BUN/Creatinine Ratio 23 (6-20) Glucose Level 277 mg/dL (70-99) Calcium Level 9.1 mg/dL (8.5-10.1) Magnesium Level 1.4 mg/dL (1.8-2.4) Total Bilirubin 0.4 mg/dL (0.2-1.0) Aspartate Amino Transf (AST/SGOT) 19 U/L (15-37) Alanine Aminotransferase (ALT/SGPT) 25 U/L (14-59) Alkaline Phosphatase 36 U/L (46-116) Troponin I Quantitative 0.032 ng/mL (0.000-0.055) 0.129 ng/mL (0.000-0.055) 0.127 ng/mL (0.000-0.055) QX-Kzd-P-Type Natriuretic Peptide 905 pg/mL (0-124) Total Protein 6.3 g/dL (6.4-8.2) Albumin 3.5 g/dL (3.4-5.0) Albumin/Globulin Ratio 1.3 (1.0-1.7) Lipase 135 U/L (73-393) Thyroid Stimulating Hormone (TSH) 0.749 uIU/mL (0.358-3.74) Test 06/14/18 21:10 06/15/18 12:00 Urine Collection Type Unknown Urine Color Yellow Urine Clarity Clear Urine pH 5.5 Urine Specific [place] 1.020 Urine Protein 30 mg/dL (NEG-TRACE) Urine Glucose (UA) Negative mg/dL (NEG) Urine Ketones (Stick) Negative mg/dL (NEG) Urine Blood Negative (NEG) Urine Nitrite Negative (NEG) Urine Bilirubin Negative (NEG) Urine Urobilinogen Dipstick 0.2 mg/dL (0.2 mg/dL) Urine Leukocyte Esterase Small (NEG) Urine RBC 0 /HPF (0-2) Urine WBC 5-10 /HPF (0-4) Urine Bacteria Few /HPF (0-FEW) Urine Hyaline Casts Few /HPF Urine Mucus Mod /LPF Sodium Level 146 mmol/L (136-145) Potassium Level 4.7 mmol/L (3.5-5.1) Chloride Level 102 mmol/L (98-107) Carbon Dioxide Level 40 mmol/L (21-32) Anion Gap 4 (6-14) Blood Urea Nitrogen 34 mg/dL (7-20) Creatinine 1.4 mg/dL (0.6-1.0) Estimated GFR (Cockcroft-Gault) 37.5 Glucose Level 171 mg/dL (70-99) Calcium Level 9.3 mg/dL (8.5-10.1) Magnesium Level 1.8 mg/dL (1.8-2.4) Triglycerides Level 121 mg/dL (0-150) Cholesterol Level 143 mg/dL (0-200) LDL Cholesterol, Calculated 70 mg/dL (0-100) VLDL Cholesterol, Calculated 24 mg/dL (0-40) Non-HDL Cholesterol Calculated 94 mg/dL (0-129) HDL Cholesterol 49 mg/dL (40-60) Cholesterol/HDL Ratio 2.9 Laboratory Tests Test 06/14/18 16:45 06/14/18 20:00 06/14/18 21:10 06/15/18 12:00 Troponin I Quantitative 0.129 ng/mL (0.000-0.055) 0.127 ng/mL (0.000-0.055) Urine Collection Type Unknown Urine Color Yellow Urine Clarity Clear Urine pH 5.5 Urine Specific [place] 1.020 Urine Protein 30 mg/dL (NEG-TRACE) Urine Glucose (UA) Negative mg/dL (NEG) Urine Ketones (Stick) Negative mg/dL (NEG) Urine Blood Negative (NEG) Urine Nitrite Negative (NEG) Urine Bilirubin Negative (NEG) Urine Urobilinogen Dipstick 0.2 mg/dL (0.2 mg/dL) Urine Leukocyte Esterase Small (NEG) Urine RBC 0 /HPF (0-2) Urine WBC 5-10 /HPF (0-4) Urine Bacteria Few /HPF (0-FEW) Urine Hyaline Casts Few /HPF Urine Mucus Mod /LPF Sodium Level 146 mmol/L (136-145) Potassium Level 4.7 mmol/L (3.5-5.1) Chloride Level 102 mmol/L (98-107) Carbon Dioxide Level 40 mmol/L (21-32) Anion Gap 4 (6-14) Blood Urea Nitrogen 34 mg/dL (7-20) Creatinine 1.4 mg/dL (0.6-1.0) Estimated GFR (Cockcroft-Gault) 37.5 Glucose Level 171 mg/dL (70-99) Calcium Level 9.3 mg/dL (8.5-10.1) Magnesium Level 1.8 mg/dL (1.8-2.4) Triglycerides Level 121 mg/dL (0-150) Cholesterol Level 143 mg/dL (0-200) LDL Cholesterol, Calculated 70 mg/dL (0-100) VLDL Cholesterol, Calculated 24 mg/dL (0-40) Non-HDL Cholesterol Calculated 94 mg/dL (0-129) HDL Cholesterol 49 mg/dL (40-60) Cholesterol/HDL Ratio 2.9 Brief Hospital Course Ms. Tolbert is a 68 old female who presented with atrial fibrillation and hypertensive urgency, she was promptly started on a cardizem drip. Cardiac evaluation was requested and she was started on Flecainide. She responded well to the therapy and was deemed appropriate for discharge. the following recommendations were given from our sales support consultant. Recommendations 1. BMP, Mg. Obtain EKG 2. Will verify home cardiac meds and will start on flecainide for rhythm maintenance. Continue with pradaxa. 3. Outpt stress test. 4. Recommend outpt GARRICK worlup. Discharge Information Condition at Discharge: Improved Follow Up: Weeks Disposition/Orders: D/C to Home Scheduled Ascorbic Acid (Vitamin C) 500 Mg Capsule, 500 MG PO DAILY05 for supplement, ( Reported) Entered as Reported by: PRAFUL ARNOLD on 06/14/181632 Last Taken: Unknown Dose on Unknown Date & Time Last Action: Converted on 06/14/181933 by PRAFUL ARNOLD Aspirin (Aspirin) 81 Mg Tab.chew, 1 TAB PO DAILY for heart, #30 Ref 3 (Reported) Entered as Reported by: PRAFUL ARNOLD on 06/14/18 163 Last Taken: Unknown Dose on Unknown Date & Time Last Action: Continued on 06/14/181933 by PRAFUL ARNOLD Atorvastatin Calcium (Lipitor) 80 Mg Tablet, 1 TAB PO DAILY for high cholestrol , #30 Ref 5 (Reported) Entered as Reported by: PRAFUL ARNOLD on 06/14/181632 Last Taken: Unknown Dose on Unknown Date & Time Last Action: Converted on 06/14/181933 by PRAFUL ARNOLD Calcium Carbonate/Vitamin D3 (Calcium + Vitamin D Tablet) 1 Each Tablet, 1 EACH PO DAILY for vitamin, (Reported) Entered as Reported by: PRAFUL ARNOLD on 06/14/18 163 Last Taken: Unknown Dose on Unknown Date & Time Last Action: Converted on 06/14/181933 by PRAFUL ARNOLD Cephalexin (Keflex) 500 Mg Capsule, 1 CAP PO TID for cellulities for 3 Days, #9 (Reported) Entered as Reported by: PRAFUL ARNOLD on 06/14/18 163 Last Taken: Unknown Dose on Unknown Date & Time Last Action: Converted on 06/14/181933 by PRAFUL ARNOLD Cholecalciferol (Vitamin D3) (Vitamin D3) 5,000 Unit Tablet, 1 TAB PO DAILY for supplement, #30 (Reported) Entered as Reported by: PRAFUL ARNOLD on 06/14/181632 Last Taken: Unknown Dose on Unknown Date & Time Last Action: Converted on 06/14/181933 by PRAFUL ARNOLD Cyanocobalamin (Vitamin B-12) (Vitamin B-12) 1,000 Mcg Tablet, 2.5 TAB PO DAILY for supplement, #30 Ref 2 (Reported) Entered as Reported by: PRAFUL ARNOLD on 06/14/181632 Last Taken: Unknown Dose on Unknown Date & Time Last Action: Continued on 06/14/181933 by PRAFUL ARNOLD Dabigatran Etexilate Mesylate (Pradaxa) 150 Mg Capsule, 1 CAP PO BID for Afib, # 180 Ref 1 (Reported) Entered as Reported by: PRAFUL ARNOLD on 06/14/181632 Last Taken: Unknown Dose on Unknown Date & Time Last Action: Continued on 06/14/181933 by PRAFUL ARNOLD Diltiazem Hcl (Cartia Xt) 180 Mg Cap.er.24h, 360 MG PO DAILY for A.fib, ( Reported) Entered as Reported by: PRAFUL ARNOLD on 06/14/181632 Last Taken: Unknown Dose on Unknown Date & Time Last Action: Reviewed on 06/14/181635 by PRAFUL ARNOLD Fenofibrate Nanocrystallized (Fenofibrate) 145 Mg Tablet, 1 TAB PO DAILY for high cholestrol, #30 Ref 5 (Reported) Entered as Reported by: PRAFUL ARNOLD on 06/14/181632 Last Taken: Unknown Dose on Unknown Date & Time Last Action: Converted on 06/14/181933 by PRAFUL ARNOLD Ferrous Sulfate (Ferrous Sulfate) 325 Mg Tablet, 1 TAB PO DAILY for supplement, #30 Ref 3 (Reported) Entered as Reported by: PRAFUL ARNOLD on 06/14/181632 Last Taken: Unknown Dose on Unknown Date & Time Last Action: Continued on 06/14/181933 by PRAFUL ARNOLD Flecainide Acetate (Flecainide Acetate) 50 Mg Tablet, 50 MG PO Q12HR for antiarrhytmic for 30 Days, #60 Prescribed by: HUA MENA MD on 06/15/18 145 Fluticasone/Salmeterol (Advair 250-50 Diskus) 1 Each Disk.w.dev, 1 PUFF IH DAILY for COPD, #3 Ref 3 (Reported) Entered as Reported by: PRAFUL ARNOLD on 06/14/181632 Last Taken: Unknown Dose on Unknown Date & Time Last Action: Reviewed on 06/14/181635 by PRAFUL ARNOLD Furosemide (Lasix) 20 Mg Tablet, 1 TAB PO DAILY for CHF, #90 Ref 1 (Reported) Entered as Reported by: PRAFUL ARNOLD on 06/14/181632 Last Taken: Unknown Dose on Unknown Date & Time Last Action: Continued on 06/14/181933 by PRAFUL ARNOLD Ketorolac Tromethamine (Acular) 5 Ml Drops, 1 DROP EACHEYE DAILY for allergies, #10 Ref 2 (Reported) Entered as Reported by: PRAFUL ARNOLD on 06/14/181632 Last Taken: Unknown Dose on Unknown Date & Time Last Action: Reviewed on 06/14/181635 by PRAFUL ARNOLD Lactobacillus Combo No.10 (Probiotic) 1 Each Capsule, 1 EACH PO BID for stomach protection, (Reported) Entered as Reported by: Kimberly Zapata on 06/14/182153 Last Action: New Order on 06/14/182153 by Kimberly Zapata Losartan Potassium (Losartan Potassium) 50 Mg Tablet, 25 MG PO DAILY for HYPERTENSION, (Reported) Entered as Reported by: PRAFUL ARNOLD on 06/14/181632 Last Taken: Unknown Dose on Unknown Date & Time Last Action: Continued on 06/14/181933 by PRAFUL ARNOLD Metformin Hcl (Metformin Hcl) 1,000 Mg Tablet, 1,000 MG PO BIDWMEALS for DM, ( Reported) Entered as Reported by: PRAFUL ARNOLD on 06/14/181632 Last Taken: Unknown Dose on Unknown Date & Time Last Action: Converted on 06/14/181933 by PRAFUL ARNOLD Metoprolol Tartrate (Metoprolol Tartrate) 25 Mg Tablet, 1 TAB PO BID for high blood pressure, #180 Ref 1 (Reported) Entered as Reported by: PRAFUL ARNOLD on 06/14/181632 Last Taken: Unknown Dose on Unknown Date & Time Last Action: Continued on 06/14/181933 by PRAFUL ARNOLD Omeprazole Magnesium (Prilosec Otc) 20 Mg Tablet.dr, 2 TAB PO DAILY for GERD, # 30 Ref 3 (Reported) Entered as Reported by: PRAFUL ARNOLD on 06/14/181632 Last Taken: Unknown Dose on Unknown Date & Time Last Action: Converted on 06/14/181933 by PRAFUL ARNOLD Potassium Chloride (Klor-Con 10) 10 Meq Tablet.er, 10 MEQ PO DAILY for replacement, (Reported) Entered as Reported by: PRAFUL ARNOLD on 06/14/181632 Last Taken: Unknown Dose on Unknown Date & Time Last Action: Converted on 06/14/181933 by PRAFUL ARNOLD Prednisone (Prednisone) 20 Mg Tablet, 1 TAB PO DAILY for cellulitis, #2 ( Reported) Entered as Reported by: PRAFUL ARNOLD on 06/14/181634 Last Taken: Unknown Dose on Unknown Date & Time Last Action: Continued on 06/14/181933 by PRAFUL ARNOLD Trazodone Hcl (Trazodone Hcl) 300 Mg Tablet, 1 TAB PO QHS for insomnia, #30 Ref 1 (Reported) Entered as Reported by: PRAFUL ARNOLD on 06/14/181632 Last Taken: Unknown Dose on Unknown Date & Time Last Action: Converted on 06/14/181933 by PRAFUL ARNOLD Scheduled PRN Desonide (Desowen) 60 Gm Cream..g., 1 TIFFANY TP PRN DAILY PRN for dermatitis, #60 ( Reported) Entered as Reported by: PRAFUL ARNOLD on 06/14/181632 Last Taken: Unknown Dose on Unknown Date & Time Last Action: Reviewed on 06/14/181635 by PRAFUL ARNOLD Fluocinonide (Fluocinonide) 15 Gm Cream..g., 1 TIFFANY TP PRN DAILY PRN for dermatits scalp, #30 Ref 1 (Reported) Entered as Reported by: PRAFUL ARNOLD on 06/14/181632 Last Taken: Unknown Dose on Unknown Date & Time Last Action: Reviewed on 06/14/181635 by PRAFUL ARNOLD Fluticasone Propionate (Flonase Allergy Relief) 9.9 Ml [place].susp, 2 SPRAYS NS PRN DAILY PRN for ALLERGIES, (Reported) Entered as Reported by: PRAFUL ARNOLD on 06/14/181632 Last Taken: Unknown Dose on Unknown Date & Time Last Action: Reviewed on 06/14/181635 by PRAFUL ARNOLD Hydrocodone Bit/Acetaminophen (Hydrocodone-Apap 5-325 ) 1 Tab Tablet, 1 TAB PO PRN BID PRN for PAIN, Ref 0 (Reported) Entered as Reported by: PRAFUL ARNOLD on 06/14/181632 Last Taken: Unknown Dose on Unknown Date & Time Last Action: Continued on 06/14/181933 by PRAFUL ARNOLD Ibuprofen (Ibuprofen) 600 Mg Tablet, 1,800 MG PO DAILY PRN for INFLAMMATION, ( Reported) Entered as Reported by: PRAFUL ARNOLD on 06/14/181632 Last Taken: Unknown Dose on Unknown Date & Time Last Action: Converted on 06/14/181933 by PRAFUL ARNOLD Levalbuterol Hcl (Xopenex) 0.63 Mg/3 Ml Vial.neb, 1 VIAL NEB PRN DAILY PRN for asthma, #360 Ref 11 (Reported) Entered as Reported by: PRAFUL ARNOLD on 06/14/181632 Last Taken: Unknown Dose on Unknown Date & Time Last Action: Reviewed on 06/14/181635 by PRAFUL ARNOLD Triamcinolone Acetonide (Triamcinolone Acetonide) 80 Gm Oint...g., 1 TIFFANY TP PRN BID PRN for dermatitis, #30 Ref 1 (Reported) Entered as Reported by: PRAFUL ARNOLD on 06/14/181632 Last Taken: Unknown Dose on Unknown Date & Time Last Action: Reviewed on 06/14/181635 by PRAFUL ARNOLD Discontinued Medications Ascorbic Acid (Vitamin C) 500 Mg Tablet, 500 MG PO DAILY, (Reported) Indication: supplement Next dose: 11/07/13 am Entered as Reported by: GWENDOLYN BENNETT on 11/04/13 1032 Last Action: Discontinued on 06/14/181605 by PRAFUL ARNOLD Atorvastatin Calcium (Atorvastatin Calcium) 40 Mg Tablet, 40 MG PO HS for FOR CHOLESTEROL, #30 Ref 0 (Reported) Indication: cholesterol Next dose: 11/06/13 bedtime Entered as Reported by: GWENDOLYN BENNETT on 11/06/13 1336 Last Action: Discontinued on 06/14/181605 by PRAFUL ARNOLD Calcium Carbonate/Vitamin D3 (Calcium + Vitamin D Tablet) 1 Each Tablet, 1 EACH PO DAILY, (Reported) Indication: supplement Next dose: 11/07/13 am Entered as Reported by: GWENDOLYN BENNETT on 11/04/13 1032 Last Action: Discontinued on 06/14/18 160 by PRAFUL ARNOLD Cholecalciferol (Vitamin D3) (Vitamin D3) 5,000 Unit Tablet, 5,000 UNIT PO DAILY , (Reported) Indication: supplement Next dose: 11/07/13 am Entered as Reported by: GWENDOLYN BENNETT on 11/04/131031 Last Action: Discontinued on 06/14/181605 by PRAFUL ARNOLD Cyanocobalamin (Vitamin B-12) (Vitamin B-12) 2,500 Mcg Tab.subl, 2,500 MCG SL DAILY, (Reported) Indication: supplement Next dose: 11/07/13 am Entered as Reported by: GWENDOLYN BENNETT on 11/04/131031 Last Action: Discontinued on 06/14/181605 by PRAFUL ARNOLD Fluticasone Propionate (Flonase) 16 Gm [place].susp, 1 SPRAY NS PRN DAILY PRN for ALLERGIES, (Reported) Indication: allergies/asthma Next dose: as needed Entered as Reported by: GWENDOLYN BENNETT on 11/04/131031 Last Action: Discontinued on 06/14/181605 by PRAFUL ARNOLD Fluticasone/Salmeterol (Advair 250-50 Diskus) 1 Each Disk.w.dev, 1 INH IH DAILY, (Reported) Indication: asthma Next dose: 11/07/13 am Entered as Reported by: GWENDOLYN BENNETT on 11/04/131031 Last Action: Discontinued on 06/14/181605 by PRAFUL ARNOLD Hydrocodone Bit/Acetaminophen (Hydrocodone-Apap 7.5-300) 1 Each Tablet, 1 TAB PO BID for PAIN, Ref 0 (Reported) Indication: pain Next dose: as needed Entered as Reported by: GWENDOLYN BENNETT on 11/04/131031 Last Action: Discontinued on 06/14/181605 by PRAFUL ARNOLD Ketorolac Tromethamine (Acular) 5 Ml Drops, 5 ML OP PRN DAILY PRN for ALLERGIES, (Reported) Indication: vision Next dose: as needed Entered as Reported by: GWENDOLYN BENNETT on 11/04/131031 Last Action: Discontinued on 06/14/181605 by PRAFUL ARNOLD Levalbuterol Hcl (Xopenex) 1.25 Mg/3 Ml Vial.neb, 1.25 MG IH for SHORTNESS OF BREATH, (Reported) Indication: asthma Next dose: as needed Entered as Reported by: GWENDOLYN BENNETT on 11/04/13 1032 Last Action: Discontinued on 06/14/18 160 by PRAFUL ARNOLD Losartan Potassium (Losartan Potassium ) 25 Mg Tablet, 25 MG PO DAILY, ( Reported) Indication: blood pressure Next dose: 11/07/13 am Entered as Reported by: GWENDOLYN BENNETT on 11/06/13 1336 Last Action: Discontinued on 06/14/18 160 by PRAFUL ARNOLD Metformin Hcl (Metformin Hcl) 1,000 Mg Tablet, 1,000 MG PO BID for ANTI-DIABETIC , Ref 0 (Reported) Indication: diabetes Next dose: 11/06/13 pm Entered as Reported by: GWENDOLYN BENNETT on 11/04/13 103 Last Action: Discontinued on 06/14/18 160 by PRAFUL ARNOLD Omeprazole (Prilosec) 40 Mg Capsule.dr, 40 MG PO QHS, (Reported) Indication: GERD Next dose: 11/06/13 bedtime Entered as Reported by: GWENDOLYN BENNETT on 11/04/13 103 Last Action: Discontinued on 06/14/18 160 by PRAFUL ARNOLD Trazodone Hcl (Trazodone Hcl) 300 Mg Tablet, 300 MG PO HS, (Reported) Indication: bedtime Next dose: 11/06/13 bedtime Entered as Reported by: GWENDOLYN BENNETT on 11/04/13 103 Last Action: Discontinued on 06/14/18 160 by HUA ORTIZ MD Jun 15, 2018 15:04
--- NOTE | 2018-06-15 16:55 | NUR ---
Discharge Note: DIMITRI STONER Discharge instructions and discharge home medications reviewed with Patient and a copy given. All questions have been answered and understanding verbalized.
--- NOTE | 2018-06-19 15:44 | EKG ---
[facility] [address] [place] [address] Test Date: 2018-06-14 Test Time: 10:46:15 Pat Name: DIMITRI STONER Department: Room: 209 1 Gender: F Director Of Physical Education: : 1950 Requested By: OLIVA JIMENEZ Order Number: [id number] Reading MD: Wilman Carballo MD Measurements Intervals [place] Rate: 160 P: [place]: QRS: 62 QRSD: 82 T: 26 QT: 276 QTc: 452 Interpretive Statements SVT NON-SPECIFIC ST/T CHANGES Electronically Signed On 06-25-2018 12:12:57 NEW [employer] SALESPERSON by Wilman Carballo MD
== END 2018-06-15 16:55 | disposition home or self-care (01) | DRG 291 ==
LOC: ER 10:40 → 2 NORTH 13:33
PROVIDERS: ADMIT Internal Medicine; ATTEND Internal Medicine
DX: I11.0 Hypertensive heart disease with heart failure (principal); I50.31 Acute diastolic (congestive) heart failure; Z68.43 Body mass index [BMI] 50.0-59.9, adult; E87.0 Hyperosmolality and hypernatremia; N17.9 Acute kidney failure, unspecified; I24.8 Other forms of acute ischemic heart disease; I48.0 Paroxysmal atrial fibrillation; R07.89 Other chest pain; E11.9 Type 2 diabetes mellitus without complications; E66.01 Morbid (severe) obesity due to excess calories; E78.5 Hyperlipidemia, unspecified; E83.42 Hypomagnesemia; I16.0 Hypertensive urgency; I27.20 Pulmonary hypertension, unspecified; J44.9 Chronic obstructive pulmonary disease, unspecified; K21.9 Gastro-esophageal reflux disease without esophagitis; Z79.01 Long term (current) use of anticoagulants; Z79.02 Long term (current) use of antithrombotics/antiplatelets; Z80.3 Family history of malignant neoplasm of breast; Z82.3 Family history of stroke; Z82.49 Family history of ischemic heart disease and other diseases of the circulatory system; Z83.3 Family history of diabetes mellitus; Z88.6 Allergy status to analgesic agent; Z88.1 Allergy status to other antibiotic agents; Z88.5 Allergy status to narcotic agent; Z88.0 Allergy status to penicillin; Z88.2 Allergy status to sulfonamides; Z88.8 Allergy status to other drugs, medicaments and biological substances
CPT/HCPCS: 36415; 71045; 80048; 80053; 80061; 81001; 83690; 83735; 83880; 84443; 84484; 85025; 85379; 87086; 93005; 94640; 94760; 96365; 96366; 96375; J1160; J3475; J3490; J7030; J7512; J7620; 99285-25

== ENCOUNTER → 2018-10-24 | Outpatient (CLI) | payer OTHER ==
[2018-06-15 15:50] VITALS: BP 148/73
[~2018-10-24] MED LIST changes: +ASCO500C9 PO; +CEPH-264 PO; +CYAN10005 PO; +DESO60CR2 TP; +DILT180C64 PO; +FENO145T30 PO; +FERR325T14 PO; +FLEC50TA PO; +FLUO15CR TP; +FLUT9.9S NS; +FURO-69 PO; +HYDR-2761 PO; +KETO5DRO EACHEYE; +LACT1CAP29 PO; +LIPITOR80 MG PO; +LOSA-73 PO; +METO25TA4 PO; +OMEP20TA63 PO; +POTA10TA6 PO; +PRED20TA PO; +TRIA80OI TP; +XOPENEX0.63 MG/3 NEB
--- NOTE | 2018-10-30 12:50 | SLEEP ---
DATE OF STUDY: 10/24/2018 SLEEP STUDY DATE OF STUDY: 10/24/2018. ATTENDING PHYSICIAN: Marylu Agustin M.D. REFERRING PHYSICIAN: Sheldon Polk M.D. The patient is 68 years old who weighs 290 pounds with a BMI of 49. The patient's Crest[place] score was 3. The patient underwent split-night study performed at [facility]. During the night study, the patient spent 492 minutes in bed and slept for 266 minutes with a low sleep efficiency of 54%. Sleep latency was 19 minutes with an absent REM latency due to lack of REM sleep. Sleep architecture showed normal stage 1 sleep, increased stage 2 sleep, absent slow wave and absent REM sleep. During the initial diagnostic portion of the study, the patient slept for 135 minutes. During that time, there were 2 obstructive apneas, no mixed or central apneas, but 180 hypopneas. The patient's apnea-hypopnea index was 81 per hour, supine index 5 per hour. REM sleep was not observed. EKG monitoring revealed normal sinus rhythm, average heart rate 75 beats per minute. No sustained arrhythmias observed. Nocturnal oximetry study revealed a mean oxygen saturation of 86% with the lowest of 68%. 32% of the time, oxygen saturation remained between 80% and 89% and 65% of the time, between 70% and 79%. The patient uses oxygen at 3 liters at home on a 24-hour basis. This study was done on room air. PLMS were seen at index of 11 per hour and 2 per hour caused EEG arousals. The patient met the criteria for CPAP initiation. She was started at 5 cm water and titrated up to 15 cm water. The patient slept for 43 minutes at the final pressure. The patient's AHI was still 45 per hour and oxygen saturation remained in the mid-to-high 70s. The patient uses a small-sized full face mask. Optimum CPAP pressure was not achieved. IMPRESSION: 1. Severe sleep apnea-hypopnea syndrome at an apnea-hypopnea index of 81 per hour. 2. Severe nocturnal hypoxia secondary to obstructive sleep apnea, but consider ruling out other pulmonary or cardiac etiologies as well. 3. Mild periodic limb movements of sleep, which does not need to be treated. RECOMMENDATIONS: 1. Optimum CPAP pressure was not achieved despite reaching 15 cm water. I would recommend the patient should return to the sleep lab for a BiPAP titration study. The pressure can be started at 10/6 and follow the titration protocol. 2. Once the patient is optimally treated, then follow up in 4-6 weeks to assess compliance with BiPAP and to document clinical improvement. 3. The patient may need supplemental oxygen with the BiPAP. This will be recommended on the followup titration study. 4. Weight loss is strongly advised. 5. Avoid ACADEMY DIRECTOR depressants. 6. Caution regarding driving until symptoms of sleep apnea resolve with the use of positive pressure therapy. ROSINA DAVIS MD DR: YAKOV/holli JOB#: [id number] / [id number] MARYLU Chavarria MD, SABATO MD
== END | disposition home or self-care (01) ==
LOC: SLPLAB 18:52
PROVIDERS: ATTEND Internal Medicine Pulmonary Disease
DX: G47.33 Obstructive sleep apnea (adult) (pediatric) (principal); G47.34 Idiopathic sleep related nonobstructive alveolar hypoventilation
CPT/HCPCS: 95810

== ENCOUNTER 2019-02-13 12:23 | Emergency (ER) | payer OTHER ==
[~2019-02-13] VITALS: Ht 165.1 cm; Wt 134.7 kg
[~2019-02-13 12:23] MED LIST changes: +CYAN-25 PO; -CYAN10005 PO
--- NOTE | 2019-02-13 13:13 | PHYS DOC ---
Past Medical History Past Medical History: A-Fib, Anemia, Asthma, CHF, Diabetes-Type II, Hyper tension Past Surgical History: Tonsillectomy, Other Additional Past Surgical Histo: bilateral carpal tunnel Alcohol Use: None Drug Use: None Adult General Chief Complaint Chief Complaint: LOWER BACK PAIN OR INJURY HPI HPI Patient is a 68-year-old female who presents to the emergency department for evaluation. She has a past history of diabetes, hypertension, atrial fibrillation on anticoagulation, among other health problems. She states that she was sitting on her bed this morning, with her left leg folded under her, and her right leg dangling off the bed. She states that she attempted to get up, and in doing so twisted her body to get her left leg out from under her, and felt a pulling, sharp pain in her left lower back radiating towards her left buttock. She states the pain became increasingly severe over the next several hours (this happened at about 9:30 AM), which causes the patient to come to the emergency department for evaluation. However, the patient states that she took ibuprofen, 800 mg, later in the morning, which has significantly improved her pain, to the point that she denies the need for any pain medication at this time. She denies any numbness, weakness, or incontinence. She denies any dysuria, although does report some urinary frequency today. She is able to handle it without significant pain or difficulty. Other than as stated above, there are no alleviating or exacerbating factors to her symptoms. Review of Systems Review of Systems Constitutional: Denies fever or chills [] Eyes: Denies change in visual acuity, redness, or eye pain [] HENT: Denies nasal congestion or sore throat [] Respiratory: Denies cough or shortness of breath [] Cardiovascular: The patient denies any shortness of breath, chest pain, palpitations, or orthopnea [] GI: Denies abdominal pain, nausea, vomiting, bloody stools or diarrhea [] : Denies dysuria or hematuria [] Musculoskeletal: Denies mid or upper back pain or joint pain [] Integument: Denies rash or skin lesions [] Neurologic: Denies headache, focal weakness or sensory changes [] Endocrine: Denies polyuria or polydipsia [] All other systems were reviewed and found to be within normal limits, except as documented in this note. Allergies Allergies Allergies Coded Allergies Type Severity Reaction Last Updated Verified Penicillins Allergy Severe ANAPHYLAXIS 11/04/13 Yes Sulfa (Sulfonamide Antibiotics) Allergy Severe anaphylatic 06/15/18 Yes sulfamethoxazole Allergy Severe Anaphylaxis 06/15/18 Yes trimethoprim Allergy Severe Anaphylaxis 06/15/18 Yes cefaclor Allergy Intermediate hives 06/15/18 Yes celecoxib Allergy Intermediate 06/15/18 Yes iodine Allergy Intermediate hives 06/15/18 Yes levofloxacin Allergy Intermediate hives 06/15/18 Yes nitrofurantoin Allergy Intermediate hives 06/15/18 Yes tetanus immune globulin Allergy Intermediate 06/15/18 Yes tramadol Allergy Intermediate hives 06/15/18 Yes trandolapril Allergy Intermediate hives 06/15/18 Yes venom-honey bee Allergy Intermediate Hives 06/15/18 Yes verapamil Allergy Intermediate hives 06/15/18 Yes Physical Exam Physical Exam PHYSICAL EXAM: CONSTITUTIONAL: Well developed, well nourished HEAD: normocephalic, atraumatic EENT: PERRL, EOMI. Conjunctivae normal color, sclerae non-icteric; moist mucous membranes. NECK: Supple, non-tender; no meningismus. LUNGS: Lungs CTA, breathing even and unlabored. Normal air movement. HEART: Regular rate and rhythm, no murmur CHEST: No deformity; non-tender ABDOMEN: The abdomen is soft, and non-tender, no masses or bruits. EXTREM: Normal ROM; no deformity, no calf tenderness. Normal pulses palpable in all extremities. There is no pedal edema. SKIN: No rash; no diaphoresis NEURO: Alert; normal speech and cognition; CN's grossly intact; strength grossly intact without focal deficit. There is no foot drop. There is no perineal anesthesia. Straight leg raise is negative bilaterally. There is no peripheral or distal anesthesia. Patellar reflexes are symmetrically absent. BACK: No CVA TTP.There is no bony tenderness to palpation of the midline thoracic or lumbar spine. There is mild tenderness to palpation to the left lower paraspinal musculature area. Current Patient Data Vital Signs Vital Signs Date Time Temp Pulse Resp B/P (MAP) Pulse Ox O2 Delivery O2 Flow Rate FiO2 02/13/19 12:30 98.6 66 22 167/94 (118) 97 Nasal Cannula 3.0 98.6 Lab Values Laboratory Tests Test 02/13/19 13:30 Urine Collection Type Void Urine Color Angelica Urine Clarity Cloudy Urine pH 5.0 Urine Specific [place] >=1.030 Urine Protein 100 mg/dL (NEG-TRACE) Urine Glucose (UA) Negative mg/dL (NEG) Urine Ketones (Stick) Negative mg/dL (NEG) Urine Blood Large (NEG) Urine Nitrite Negative (NEG) Urine Bilirubin Negative (NEG) Urine Urobilinogen Dipstick 1.0 mg/dL (0.2 mg/dL) Urine Leukocyte Esterase Moderate (NEG) Urine RBC Tntc /HPF (0-2) Urine WBC Tntc /HPF (0-4) Urine Squamous Epithelial Cells Few /LPF Urine Bacteria Moderate /HPF (0-FEW) Urine Mucus Slight /LPF EKG EKG [] Radiology/Procedures Radiology/Procedures []PROCEDURE: LUMBAR SPINE 2-3V EXAM: Lumbar spine, 3 views. HISTORY: Pain. COMPARISON: None. FINDINGS: 3 views of the lumbar spine are obtained. There is lumbar dextro scoliosis centered at L3. There is degenerative endplate remodeling with disc space narrowing and osteophytosis primarily along the left aspects of L3-L4 and L4-L5 and right aspect of L5-S1. This corresponds with the levels of maximum scoliotic curvature. There is slight retrolisthesis of L3 on L4 and L4-5 and L5-S1. There is advanced facet arthropathy at all levels. IMPRESSION: 1. Multilevel degenerative change throughout the lumbar spine. 2. Lumbar scoliosis and multilevel listhesis. 3. No acute osseous finding. Course & Med Decision Making Course & Med Decision Making Pertinent Labs and Imaging studies reviewed. (See chart for details) []2:10 PM: The patient's condition remains stable. She is feeling better at this time. Her exam is not highly suggestive of renal stone, although this is a diagnostic possibility and I discussed this with the patient. We discussed doing further testing, such as blood testing and a CT scan, but she declined at this time. I did discuss importance of close follow-up with her PCP for further evaluation, and re evaluation of the hematuria that was noted today, which might be related to the setting of a urinary tract infection. Return precautions were discussed in detail. Patient has an extensive allergy list. She has taken K eflex in the past without difficulty. Dragon Disclaimer Dragon Disclaimer This electronic medical record was generated, in whole or in part, using a voice recognition dictation system. Departure Departure Impression: Primary Impression: Low back pain Additional Impression: UTI (urinary tract infection) Disposition: 01 HOME, SELF-CARE Condition: STABLE Referrals: MICAH HERNANDEZ MD (PCP) Patient Instructions: Back Pain, Adult, Urinary Tract Infection Additional Instructions: Tylenol and/or Motrin as needed for pain, although I would avoid excessive ibuprofen or NSAID use in the setting of underlying anticoagulant use for your atrial fibrillation. Return to medical care for any new or worsening symptoms, development of increasing pain, fever, vomiting, lethargy, or any other new, or concerning symptoms. There was blood noted in the urine today along with the presence of infection. While infection alone could cause blood in your urine, other things, such as kidney stones or bladder cancer or kidney cancer could also cause blood in your urine. It is important that you obtain further outpatient follow-up after treatment to determine if the blood in your urine persists or if further evaluation is warranted. The your provider and yourself discussed the possibility of evaluation for a kidney stone today, but he declined evaluation for such. While this is not highly suspected, it is a possible cause of her symptoms, and if her pain persists or returns, further evaluation for the possibility of a kidney stone is warranted. Scripts Cephalexin (KEFLEX) 500 Mg Capsule 500 MG PO QID for 7 Days, #28 CAP Prov: SAM KENNY MD 02/13/19 Problem Qualifiers SAM KENNY MD Feb 13, 2019 13:13
[2019-02-13 13:40] LABS: BILIRUBIN,URINE NEGATIVE (NEG); CLARITY,URINE CLOUDY; COLOR,URINE AMBER; NITRITE,URINE NEGATIVE (NEG); PROTEIN,URINE 100 mg/dL (NEG-TRACE)
[2019-02-13 13:52] LABS: BACTERIA,URINE MODERATE /HPF (0-FEW); RBC,URINE TNTC /HPF (0-2); SQUAMOUS EPITHELIAL CELL,UR FEW /LPF; WBC,URINE TNTC /HPF (0-4)
[2019-02-13 13:56] VITALS: BP 161/91
--- NOTE | 2019-02-13 13:57 | RAD ---
EXAM: Lumbar spine, 3 views. HISTORY: Pain. COMPARISON: None. FINDINGS: 3 views of the lumbar spine are obtained. There is lumbar dextro scoliosis centered at L3. There is degenerative endplate remodeling with disc space narrowing and osteophytosis primarily along the left aspects of L3-L4 and L4-L5 and right aspect of L5-S1. This corresponds with the levels of maximum scoliotic curvature. There is slight retrolisthesis of L3 on L4 and L4-5 and L5-S1. There is advanced facet arthropathy at all levels. IMPRESSION: 1. Multilevel degenerative change throughout the lumbar spine. 2. Lumbar scoliosis and multilevel listhesis. 3. No acute osseous finding. Electronically signed by: Karissa Pacheco MD (02/13/2019 1:53 PM) [facility]
[2019-02-13] MEDS ORDERED: CEPH-264 PO (14:13)
[2019-02-13] MEDS ORDERED: HYDR-3164 PO (23:22)
[2019-02-13] MEDS ORDERED: ONDA4TAB7 PO (23:22)
== END 2019-02-13 14:30 | disposition home or self-care (01) ==
LOC: ER 12:23
DX: N39.0 Urinary tract infection, site not specified (principal); I48.91 Unspecified atrial fibrillation; I11.0 Hypertensive heart disease with heart failure; I50.9 Heart failure, unspecified; E11.9 Type 2 diabetes mellitus without complications; J45.909 Unspecified asthma, uncomplicated; Z88.0 Allergy status to penicillin; Z88.2 Allergy status to sulfonamides; Z88.1 Allergy status to other antibiotic agents; Z88.8 Allergy status to other drugs, medicaments and biological substances; Z91.030 Bee allergy status
CPT/HCPCS: 72100; 81001; 82962; 87086; 99285-25

== ENCOUNTER 2019-02-13 21:07 | Emergency (ER) | payer OTHER ==
[~2019-02-13] VITALS: Ht 165.1 cm; Wt 130.2 kg
[2019-02-13 21:19] VITALS: BP 236/106
[2019-02-13 21:57] LABS: BASO % 1 % (0-3); EOS # 0.2 x10^3/uL (0.0-0.7); EOS % 3 % (0-3); HEMATOCRIT 35.7 % (36.0-47.0); HEMOGLOBIN 11.5 g/dL (12.0-15.5); LYMPH # 1.5 x10^3/uL (1.0-4.8); LYMPH % 24 % (24-48); MEAN CORPUSCULAR HEMOGLOBIN 26 pg (25-35); MEAN CORPUSCULAR HGB CONC 32 g/dL (31-37); MEAN CORPUSCULAR VOLUME 81 fL (79-100); MONO # 0.6 x10^3/uL (0.0-1.1); MONO % 10 % (0-9); NEUT % 63 % (31-73); PLATELET COUNT 229 x10^3/uL (140-400); RED BLOOD COUNT 4.42 x10^6/uL (3.50-5.40); RED CELL DISTRIBUTION WIDTH 14.3 % (11.5-14.5); WHITE BLOOD COUNT 6.3 x10^3/uL (4.0-11.0)
[2019-02-13 22:04] LABS: BILIRUBIN,URINE NEGATIVE (NEG); CLARITY,URINE CLEAR; COLOR,URINE YELLOW; NITRITE,URINE NEGATIVE (NEG); PROTEIN,URINE 100 mg/dL (NEG-TRACE); UROBILINOGEN,URINE 0.2 mg/dL (0.2 mg/dL)
[2019-02-13 22:07] LABS: CALCIUM 9.4 mg/dL (8.5-10.1); CREATININE 1.5 mg/dL (0.6-1.0); GFR 34.6; POTASSIUM 4.6 mmol/L (3.5-5.1)
[2019-02-13 22:13] LABS: ALBUMIN 3.9 g/dL (3.4-5.0); ALBUMIN/GLOBULIN RATIO 1.2 (1.0-1.7); TOTAL BILIRUBIN 0.2 mg/dL (0.2-1.0); TOTAL PROTEIN 7.1 g/dL (6.4-8.2)
[2019-02-13 22:15] LABS: SQUAMOUS EPITHELIAL CELL,UR FEW /LPF
[2019-02-13 22:16] LABS: BACTERIA,URINE MODERATE /HPF (0-FEW); RBC,URINE 20-40 /HPF (0-2); WBC,URINE TNTC /HPF (0-4)
--- NOTE | 2019-02-13 22:56 | RAD ---
Exam: CT abdomen and pelvis without contrast INDICATION: Left flank pain TECHNIQUE: Sequential axial images through the abdomen and pelvis obtained without IV contrast. Sagittal and coronal reformatted images were reconstructed from the axial data and reviewed. Comparisons: None FINDINGS: Heart size is normal. No pericardial effusion. Visualized lung bases are clear. No pleural effusion. Evaluation of the solid organs is limited secondary to noncontrast technique. Liver, spleen, pancreas, gallbladder and adrenals are unremarkable. There is mild perinephric inflammation surrounding the left kidney. There is mild left-sided hydronephrosis. 5 mm stone at the distal left ureter. Bladder is decompressed not well evaluated. Uterus is not enlarged. No abnormal adnexal mass. Large and small bowel are unremarkable. Appendix is normal. No free intra-abdominal air or fluid. Small hiatal hernia. Abdominal aorta has a normal course and caliber. No enlarged abdominal lymph nodes are identified. No suspicious osseous lesions or acute fractures. IMPRESSION: 1. There is a 5 mm stone at the distal left ureter with mild left-sided hydronephrosis and perinephric inflammation. 2. Small hiatal hernia. Exposure: One or more of the following in the visualized dose reduction techniques were utilized for this examination: 1. Automated exposure control 2. Adjustment of the MA and/or KV according to patient size 3. Use of iterative of reconstructive technique Electronically signed by: Farhat Bonilla MD (02/13/2019 10:53 PM) [facility]
[2019-02-13] MEDS ORDERED: ONDANSETRON ODT 4 MG TAB.RAPDIS. PO ONE (23:00)
[2019-02-13] MEDS ORDERED: MORPHINE SULFATE 10 MG/ML VIAL. IM ONE (23:00)
[2019-02-13] MEDS ORDERED: ONDA4TAB7 PO (23:22)
[2019-02-13] MEDS ORDERED: HYDR-3164 PO (23:22)
--- NOTE | 2019-02-13 23:22 | PHYS DOC ---
Past Medical History Past Medical History: UTI Past Surgical History: Tonsillectomy, Other Additional Past Surgical Histo: bilateral carpal tunnel Alcohol Use: None Drug Use: None Adult General Chief Complaint Chief Complaint: PAIN CONTROL HPI HPI Patient is a 68 year old female presents to the due to chief complaint of left flank pain and dysuria. Patient states that she was seen earlier in the ER and was diagnosed with UTI and discharged home with antibiotics. She also had a negative x-ray at that time. Patient states that tonight her pain got worse since she came into the ED. Patient states that the pain is on and off and is not constant. Patient states that the pain starts in the left flank and radiates to her left groin. Review of Systems Review of Systems Constitutional: Denies fever or chills HENT: Denies nasal congestion, sore throat, sinus tenderness Respiratory: Denies cough or shortness of breath Cardiovascular: Denies CP GI: Complains of eft flank pain radiating to the left groin : Complains of dysuria and frequency Musculoskeletal: Denies back pain or joint pain Skin: Denies rash or skin lesions Neurologic: Denies headache, focal weakness or sensory changes Complete systems were reviewed and found to be within normal limits, except as documented in this note. Current Medications Current Medications Current Medications Medications (Trade) Dose Ordered Sig/Vic Start Time Stop Time Status Last Admin Dose Admin Morphine Sulfate (Morphine Sulfate) 10 mg 1X ONCE 02/13/19 23:00 02/13/19 23:01 DC 02/13/19 23:13 10 MG Ondansetron HCl (Zofran Odt) 4 mg 1X ONCE 02/13/19 23:00 02/13/19 23:01 DC 02/13/19 23:11 4 MG Allergies Allergies Allergies Coded Allergies Type Severity Reaction Last Updated Verified Penicillins Allergy Severe ANAPHYLAXIS 11/04/13 Yes Sulfa (Sulfonamide Antibiotics) Allergy Severe anaphylatic 06/15/18 Yes sulfamethoxazole Allergy Severe Anaphylaxis 06/15/18 Yes trimethoprim Allergy Severe Anaphylaxis 06/15/18 Yes cefaclor Allergy Intermediate hives 06/15/18 Yes celecoxib Allergy Intermediate 06/15/18 Yes iodine Allergy Intermediate hives 06/15/18 Yes levofloxacin Allergy Intermediate hives 06/15/18 Yes nitrofurantoin Allergy Intermediate hives 06/15/18 Yes tetanus immune globulin Allergy Intermediate 06/15/18 Yes tramadol Allergy Intermediate hives 06/15/18 Yes trandolapril Allergy Intermediate hives 06/15/18 Yes venom-honey bee Allergy Intermediate Hives 06/15/18 Yes verapamil Allergy Intermediate hives 06/15/18 Yes Physical Exam Physical Exam Constitutional: Well developed, well nourished, no acute distress, non-toxic appearance. HENT: Normocephalic, atraumatic, normocaphalic Eyes: PERRL, EOMI Neck: Normal range of motion, no tenderness, supple Cardiovascular:Heart rate regular rhythm, no murmur Resp: Bilateral breath sounds clear to auscultation Abdomen: Left flank pain radiating to the left groin Skin: Warm, dry, no erythema, no rash. Back: No tenderness, no CVA tenderness. Extremities: No tenderness, ROM intact, no edema. Neurologic: Alert and oriented X 3, normal motor function, normal sensory function, no focal deficits noted. Psychologic: Affect normal, judgement normal, mood normal. Current Patient Data Vital Signs Vital Signs Date Time Temp Pulse Resp B/P (MAP) Pulse Ox O2 Delivery O2 Flow Rate FiO2 02/13/19 23:13 18 96 02/13/19 21:19 98.6 77 236/106 (149) Nasal Cannula 98.6 Lab Values Laboratory Tests Test 02/13/19 21:50 02/13/19 21:55 White Blood Count 6.3 x10^3/uL (4.0-11.0) Red Blood Count 4.42 x10^6/uL (3.50-5.40) Hemoglobin 11.5 g/dL (12.0-15.5) L Hematocrit 35.7 % (36.0-47.0) L Mean Corpuscular Volume 81 fL (79-100) Mean Corpuscular Hemoglobin 26 pg (25-35) Mean Corpuscular Hemoglobin Concent 32 g/dL (31-37) Red Cell Distribution Width 14.3 % (11.5-14.5) Platelet Count 229 x10^3/uL (140-400) Neutrophils (%) (Auto) 63 % (31-73) Lymphocytes (%) (Auto) 24 % (24-48) Monocytes (%) (Auto) 10 % (0-9) H Eosinophils (%) (Auto) 3 % (0-3) Basophils (%) (Auto) 1 % (0-3) Neutrophils # (Auto) 4.0 x10^3/uL (1.8-7.7) Lymphocytes # (Auto) 1.5 x10^3/uL (1.0-4.8) Monocytes # (Auto) 0.6 x10^3/uL (0.0-1.1) Eosinophils # (Auto) 0.2 x10^3/uL (0.0-0.7) Basophils # (Auto) 0.0 x10^3/uL (0.0-0.2) Sodium Level 143 mmol/L (136-145) Potassium Level 4.6 mmol/L (3.5-5.1) Chloride Level 106 mmol/L (98-107) Carbon Dioxide Level 29 mmol/L (21-32) Anion Gap 8 (6-14) Blood Urea Nitrogen 37 mg/dL (7-20) H Creatinine 1.5 mg/dL (0.6-1.0) H Estimated GFR (Cockcroft-Gault) 34.6 BUN/Creatinine Ratio 25 (6-20) H Glucose Level 194 mg/dL (70-99) H Calcium Level 9.4 mg/dL (8.5-10.1) Total Bilirubin 0.2 mg/dL (0.2-1.0) Aspartate Amino Transferase (AST) 19 U/L (15-37) Alanine Aminotransferase (ALT) 24 U/L (14-59) Alkaline Phosphatase 38 U/L (46-116) L Total Protein 7.1 g/dL (6.4-8.2) Albumin 3.9 g/dL (3.4-5.0) Albumin/Globulin Ratio 1.2 (1.0-1.7) Urine Collection Type Unknown Urine Color Yellow Urine Clarity Clear Urine pH 5.0 Urine Specific [place] >=1.030 Urine Protein 100 mg/dL (NEG-TRACE) Urine Glucose (UA) Negative mg/dL (NEG) Urine Ketones (Stick) Negative mg/dL (NEG) Urine Blood Large (NEG) Urine Nitrite Negative (NEG) Urine Bilirubin Negative (NEG) Urine Urobilinogen Dipstick 0.2 mg/dL (0.2 mg/dL) Urine Leukocyte Esterase Large (NEG) Urine RBC 20-40 /HPF (0-2) Urine WBC Tntc /HPF (0-4) Urine Squamous Epithelial Cells Few /LPF Urine Bacteria Moderate /HPF (0-FEW) Urine Mucus Slight /LPF Laboratory Tests 02/13/19 21:50 Laboratory Tests 02/13/19 21:50 EKG EKG [] Radiology/Procedures Radiology/Procedures Ordered CT of the abdomen and pelvis without contrast Impressions: CT of the abdomen and pelvis shows a 5 mm left distal ureteral stone with hydronephrosis on the left kidney. Mild fatty stranding seen as well. Course & Med Decision Making Course & Med Decision Making Pertinent Labs and Imaging studies reviewed. (See chart for details) Ordered labs, UA, CT of the abdomen and pelvis without contrast. Labs are within normal limits except creatinine is 1.5. UA shows that patient has a UTI. CT shows the patient has a 5 mm ureteral stone that is in the left distal ureter. Patient has an infected stone and will be admitted for IV antibiotics and urology consultation. Discussed results and plan of care patient and family. Patient does not be admitted mimosa go home and follow up with her PCP tomorrow. She states that she only has antibiotics and requests that I give her pain medications to go home on. I discussed with the medical standard is for patient to be admitted with a diagnosis of infected ureteral stone. Patient is alert and oriented and is competent to make informed decision. Her is in the room as well. Discussed this and dangers of leaving AMA including worsening of condition, diarrhea, loss of current lifestyle. Patient understands. Patient received morphine and Zofran in the ED. Discussed giving her IV Rocephin in the ED. Patient declines. Discussed results and plan of care with patient. Patient is instructed to follow up with PCP in one to 2 days. Appropriate discharge instructions given to patient to return to the ED or to seek immediate medical evaluation. Dragon Disclaimer Dragon Disclaimer This electronic medical record was generated, in whole or in part, using a voice recognition dictation system. Departure Departure Impression: Primary Impression: Ureteral stone with hydronephrosis Additional Impressions: UTI (urinary tract infection) Left against medical advice Disposition: AGAINST MEDICAL ADVICE Condition: GUARDED Referrals: MICAH HERNANDEZ MD (PCP) Patient Instructions: Discharge Against Medical Advice, Kidney Stones Additional Instructions: Patient is instructed to return to the ED as soon as possible further evaluation and treatment. Patient is recommended admission but patient has decided to go home and follow up with her PCP tomorrow. Appropriate discharge instructions given to patient to return to the ED or to seek immediate medical evaluation. Patient instructed to return to the ED if symptoms worsen or if any concerns. Scripts Ondansetron Hcl (ZOFRAN) 4 Mg Tablet 1 TAB PO Q8HRS, #15 TAB Prov: PENELOPE JACOBO DO 02/13/19 Hydrocodone/Apap 5-325 (NORCO 5-325 TABLET) 1 Each Tablet 1 EACH PO PRN Q6HRS PRN for PAIN, #15 as needed for pain Prov: PENELOPE JACOBO DO 02/13/19 Problem Qualifiers PENELOPE JACOBO DO Feb 13, 2019 23:22
== END 2019-02-13 23:35 | disposition left against medical advice (07) ==
LOC: ER 21:07
DX: N13.2 Hydronephrosis with renal and ureteral calculous obstruction (principal); N39.0 Urinary tract infection, site not specified; Z88.0 Allergy status to penicillin; Z88.2 Allergy status to sulfonamides; Z88.1 Allergy status to other antibiotic agents; Z88.8 Allergy status to other drugs, medicaments and biological substances; Z88.6 Allergy status to analgesic agent; Z91.030 Bee allergy status
CPT/HCPCS: 36415; 74176; 80053; 81001; 85025; 87086; 96372; 99285; J2270; Q0162